=== PATIENT | male | born 1960 | race Caucasian/White ===

== ENCOUNTER → 2019-05-14 12:31 | Outpatient (BNVA) | payer MEDICARE, MEDICAID, SELFPAY | PROVIDERS: Family Provider Family Medicine; PCP Family Medicine; Visit Provider Specialist | DX: G35 Multiple sclerosis (principal) | CPT/HCPCS: 99214 ==

== ENCOUNTER → 2019-09-19 11:17 | Outpatient (BNVA) | payer MEDICARE, MEDICAID, SELFPAY | PROVIDERS: Family Provider Family Medicine; PCP Family Medicine; Visit Provider Urology | DX: N31.9 Neuromuscular dysfunction of bladder, unspecified (principal); N52.9 Male erectile dysfunction, unspecified; N39.9 Disorder of urinary system, unspecified | CPT/HCPCS: 81001 ==

== ENCOUNTER → 2019-12-11 15:36 | Outpatient (BNVA) | payer MEDICARE, MEDICAID, SELFPAY | PROVIDERS: Family Provider Family Medicine; PCP Family Medicine; Visit Provider Specialist | DX: G35 Multiple sclerosis (principal) | CPT/HCPCS: 99213 ==

== ENCOUNTER 2020-06-03 10:36 | Inpatient (IN) | payer MEDICARE, MEDICAID, SELFPAY ==
[2020-06-03] VITALS (11 sets, daily range): BP systolic 93–127; BP diastolic 54–72; PULSE 71–96; RESP 16–18; TEMP 36.6–37.2; O2SAT 93–98; BMI 29.0
--- NOTE | 2020-06-03 10:57 | XRR_ITS ---
PROCEDURE INFORMATION: Exam: XR Chest, 1 View Exam date and time: 06/03/2020 11:00 AM Age: 59 years old Clinical indication: Injury or trauma; Cough and dyspnea; Blunt trauma (contusions or hematomas); Injury details: Fall, pressure sore; Additional info: Dyspnea/cough TECHNIQUE: Imaging protocol: XR of the chest Views: 1 view. COMPARISON: CR Chest 1 [place] [id number] 11/14/2017 5:09 PM FINDINGS: Lungs: There are bibasilar pulmonary infiltrates which are consistent with bilateral pneumonia. This is more prominent on the right side. Pleural spaces: Unremarkable. No pleural effusion. No pneumothorax. Heart/Mediastinum: Unremarkable. No cardiomegaly. Bones/joints: Unremarkable. XR/XR chest 1V portable [id number] IMPRESSION: Bibasilar pneumonia greater on the right side.
--- NOTE | 2020-06-03 11:09 | W.ED.TRAUMA ---
HPI - Trauma General: Chief Complaint: Trauma Stated Complaint: FALL, PRESSURE SORE Time Seen by Provider: 06/03/20 10:45 History of Present Illness: HPI narrative: 59-year-old male with a history of MS brought in by EMS after slipping out of his chair onto the ground. His MS is quite advanced. He has a pressure sore in the lower aspect of his right buttock that is full-thickness. He denies any difficulty with breathing denies any chest pain or abdominal pain. See details in exam below MD complaint: fall (Slid from chair) Onset (ago): minute(s) Loss of Consciousness: no Location: buttocks Associated symptoms: Denies abdominal pain, anorexia, back pain, chest pain, chills, confusion, cough, dental pain, diaphoresis, difficulty breathing, dizziness, epistaxis, fever(s), headache(s), nausea, seizures, short of breath, syncope, visual disturbances, vomiting or weakness Review of Systems Const: Denies: fever(s), chills or diaphoresis ENMT: Denies: dental pain or epistaxis Card: Denies: chest pain or syncope Resp: Denies: dyspnea, productive cough or non-productive cough GI: Denies: abdominal pain, nausea or vomiting : Denies: flank pain, dysuria, urinary frequency or urinary urgency Musc: Denies: back pain Neuro: Denies: headache(s), dizziness or confusion PFSH ED PFSH: Medical History Anxiety Erectile dysfunction Multiple sclerosis Neurogenic bladder Surgical History History of eye surgery repair of muscle History of tonsillectomy Family History Other CAD (coronary artery disease) Social History Smoking and tobacco status: never smoked Alcohol intake: never Marital status: Single Current occupational status: disabled History of recent travel: No Physical Exam Const: COMMON NORMALS: no acute distress GENERAL APPEARANCE: cooperative HENMT: COMMON NORMALS: normocephalic, atraumatic and hearing grossly normal bilaterally HEAD & SCALP: normocephalic and atraumatic Eye: COMMON NORMALS: Equal, round and reactive pupils present, EOMs intact bilaterally, conjunctivae normal and no scleral icterus CONJUNCTIVA: Yes conjunctivae normal PUPIL: Yes Equal, round and reactive pupils present Neck/C-Spine: COMMON NORMALS: full ROM, no lymphadenopathy, supple and no JVD Resp: COMMON NORMALS: normal respiratory effort, No retractions, No use of accessory muscles and clear to auscultation bilaterally AUSCULTATION: clear to auscultation bilaterally Cardio: COMMON NORMALS: no JVD, regular rate, regular rhythm and No murmurs present (Cardio) RATE: regular rate RHYTHM: regular rhythm GI: COMMON NORMALS: Soft to palpation and No hepatosplenomegaly present AUSCULTATION: Yes normoactive bowel sounds PALPATION: Yes Soft to palpation, No Tenderness to palpation present (GI), No Guarding due to palpation present (GI) and Yes No hepatosplenomegaly present Back/Pelvis: OTHER: Feces along his back from proximal thigh to the shoulder blade level. There is an ulceration about 2 inches circular in the right gluteal fold. There is a large amount of dark stool caked around the rectum as well. Extremity: COMMON NORMALS: normal to inspection, capillary refill normal, no clubbing, cyanosis or edema, no calf tenderness and no pedal edema MDM - Trauma Lab Data: Labs: Lab Results 06/03/20 06/03/20 06/03/20 Range/Units 11:10 11:20 11:20 WBC (4.0-10.0) 10^3/ uL RBC (4.1-5.3) 10^6/u L Hgb (11.7-16.6) g/dL Hct (42.0-52.0) % MCV (80-94) fL MCH (28.0-34.0) pg MCHC (30.0-36.0) g/dL RDW (12.1-15.1) % Plt Count (130-400) 10^3/c mm MPV (7.4-10.4) fL Neut % (Auto) % Lymph % (Auto) % Carolina % (Auto) % Eos % (Auto) % Baso % (Auto) % Neut # (Auto) (1.8-7.7) 10^3/u L Lymph # (Auto) (0.8-4.8) 10^3/u L Carolina # (Auto) (0.2-0.9) 10^3/u L Eos # (Auto) (0.0-0.8) 10^3/u L Baso # (Auto) (0.0-0.1) 10^3/u L Nucleated RBC % (a uto) % Nucleated RBCs # /100WBC Specimen Type Arterial Sample Site Radial, right ABG pH 7.53 H (7.35-7.45) ABG pCO2 29.1 L (35-45) mmHg ABG pO2 53.7 L (80.0-100.0) mmH g ABG HCO3 24.3 (22-26) mmol/L ABG O2 Saturation 91.2 ABG Base Excess 1.9 (-2.0-2.0) mmol/ L Ramsey Test Pos A-a O2 Gradient 7.9 (5-10) mmHg Hematocrit 28.6 L (42-52) % Hgb O2 Saturation 89.4 L (95-100) % Carboxyhemoglobin 1.4 (0.4-20.1) %THgb Methemoglobin 0.6 (0.4-1.5) % Total Hemoglobin 9.3 L (14-18) g/dL Sodium 137.0 (131-143) mmol/L Potassium 3.1 L (3.5-5.0) mmol/L Glucose 114.0 (70-115) mg/dL Ionized Calcium 1.1 (1.1-1.4) mmol/L O2 Delivery Device Room air Legislative Director ID Gd Chloride (98-107) mmol/L Carbon Dioxide (22-29) mmol/L Anion Gap (5-19) BUN (8-23) mg/dL Creatinine (0.7-1.2) mg/dL GFR Calculation (90-130) mL/min Calculated Osmolal ity (285-295) mOsm/k g Lactic Acid 1.5 (0.5-2.2) mmol/L Calcium (8.5-10.5) mg/dL Magnesium (1.7-2.3) mg/dL Total Bilirubin (0.15-1.2) mg/dL AST (0-40) U/L ALT (0-41) U/L Alkaline Phosphata se (40-130) IU/L Creatine Kinase (39-308) U/L Total Protein (6.6-8.7) g/dL Albumin (3.5-5.2) g/dL Globulin (1.3-4.6) g/dL Lipase (13-60) U/L Urine Color Dark yellow (Yellow) Urine Appearance Hazy A (CLEAR) Urine pH 5 (5-7) Ur Specific Gravit y 1.025 (1.005-1.030) Urine Protein Trace (Negative) Urine Glucose (UA) Norm (Normal) Urine Ketones 1+ H (Negative) Urine Blood Trace H (Negative) Urine Nitrate Positive H (Negative) Urine Bilirubin 1+ H (Negative) Urine Urobilinogen 4 H (Negative) mg/dL Ur Leukocyte Bailey ase 2+ H (Negative) Urine RBC 5-10 H (0-2) /hpf Urine WBC 15-25 H (0-5) /hpf Ur Squamous Epith Cells 0-4 H (0-5) /hpf Amorphous Sediment Not Reportable Urine Bacteria 3+ H (NONE) /hpf Urine Mucus 1+ /hpf 06/03/20 06/03/20 06/03/20 Range/Units 11:37 11:37 11:37 WBC 5.8 (4.0-10.0) 10^3/ uL RBC 3.42 L (4.1-5.3) 10^6/u L Hgb 9.2 L (11.7-16.6) g/dL Hct 29.0 L (42.0-52.0) % MCV 84.8 (80-94) fL MCH 26.9 L (28.0-34.0) pg MCHC 31.7 (30.0-36.0) g/dL RDW 14.3 (12.1-15.1) % Plt Count 315 (130-400) 10^3/c mm MPV 8.9 (7.4-10.4) fL Neut % (Auto) 76.5 % Lymph % (Auto) 14.8 % Carolina % (Auto) 5.9 % Eos % (Auto) 0.7 % Baso % (Auto) 0.7 % Neut # (Auto) 4.44 (1.8-7.7) 10^3/u L Lymph # (Auto) 0.9 (0.8-4.8) 10^3/u L Carolina # (Auto) 0.3 (0.2-0.9) 10^3/u L Eos # (Auto) 0.0 (0.0-0.8) 10^3/u L Baso # (Auto) 0.0 (0.0-0.1) 10^3/u L Nucleated RBC % (a uto) 0 % Nucleated RBCs # 0.0 /100WBC Specimen Type Sample Site ABG pH (7.35-7.45) ABG pCO2 (35-45) mmHg ABG pO2 (80.0-100.0) mmH g ABG HCO3 (22-26) mmol/L ABG O2 Saturation ABG Base Excess (-2.0-2.0) mmol/ L Ramsey Test A-a O2 Gradient (5-10) mmHg Hematocrit (42-52) % Hgb O2 Saturation (95-100) % Carboxyhemoglobin (0.4-20.1) %THgb Methemoglobin (0.4-1.5) % Total Hemoglobin (14-18) g/dL Sodium 137 (131-143) mmol/L Potassium 3.2 L (3.5-5.0) mmol/L Glucose 107 (70-115) mg/dL Ionized Calcium (1.1-1.4) mmol/L O2 Delivery Device Legislative Director ID Chloride 103 (98-107) mmol/L Carbon Dioxide 23 (22-29) mmol/L Anion Gap 14.2 (5-19) BUN 15 (8-23) mg/dL Creatinine 0.7 (0.7-1.2) mg/dL GFR Calculation 115.0 (90-130) mL/min Calculated Osmolal ity 285 (285-295) mOsm/k g Lactic Acid (0.5-2.2) mmol/L Calcium 8.3 L (8.5-10.5) mg/dL Magnesium 2.0 (1.7-2.3) mg/dL Total Bilirubin 0.9 (0.15-1.2) mg/dL AST 25 (0-40) U/L ALT 17 (0-41) U/L Alkaline Phosphata se 60 (40-130) IU/L Creatine Kinase 385 H* (39-308) U/L Total Protein 5.6 L (6.6-8.7) g/dL Albumin 2.8 L (3.5-5.2) g/dL Globulin 2.8 (1.3-4.6) g/dL Lipase 12 L (13-60) U/L Urine Color (Yellow) Urine Appearance (CLEAR) Urine pH (5-7) Ur Specific Gravit y (1.005-1.030) Urine Protein (Negative) Urine Glucose (UA) (Normal) Urine Ketones (Negative) Urine Blood (Negative) Urine Nitrate (Negative) Urine Bilirubin (Negative) Urine Urobilinogen (Negative) mg/dL Ur Leukocyte Bailey ase (Negative) Urine RBC (0-2) /hpf Urine WBC (0-5) /hpf Ur Squamous Epith Cells (0-5) /hpf Amorphous Sediment Urine Bacteria (NONE) /hpf Urine Mucus /hpf Discharge Plan Discharge Patient Disposition: Admitted As Inpatient Admit Provider: Elia Bingham Clinical Impression: Multiple sclerosis, Urinary tract infection, Pressure ulcer, Pneumonia, Acute anemia, Upper GI bleed, Neurogenic bladder, Hypokalemia Condition: Stable Coding Level of Care Code ED Fermenter Helper for [facility] Fwd Exam Comprehensive
[2020-06-03 11:28] LABS: Add Urine Microscopic? YES; Bilirubin Urine 1+ (Negative); Blood Urine Trace (Negative); Glucose Urine UA Norm (Normal); Ketones Urine 1+ (Negative); Leukocyte Esterase Urine 2+ (Negative); Nitrate Urine Positive (Negative); Protein Urine Trace (Negative); Specific Gravity, Urine 1.025 (1.005-1.030); Urine Appearance Hazy (CLEAR); Urine Color Dark Yellow (Yellow); Urobilinogen Urine 4 mg/dL (Negative); pH Urine 5 (5-7)
[2020-06-03 11:31] LABS: Bacteria Urine 3+ /hpf; Mucus Urine 1+ /hpf; Squamous Epithelial Cell Urine 0-4 /hpf (0-5); WBC Urine 15-25 /hpf (0-5)
[2020-06-03 11:32] LABS: Add Urine Culture? Yes
[2020-06-03 11:38] LABS: ABG PCO2 29.1 mmHg (35-45); ABG PH Result 7.53 (7.35-7.45); Alveolar-Arterial Oxygen Gradi 7.9 mmHg (5-10); Arterial Blood Gas Hematocrit 28.6 % (42-52); Base Excess ABG 1.9 mmol/L (-2.0-2.0); Blood Gas Allen Test Pos; Blood Gas Operator Identificat GD; Blood Gas Sample Site Radial, right; Blood Gas Sample Type Arterial; Carboxyhemoglobin 1.4 %THgb (0.4-20.1); HCO3 ABG 24.3 mmol/L (22-26); HGB O2 Sat 89.4 % (95-100); Ionized Calcium Level - ABG 1.1 mmol/L (1.1-1.4); Methemoglobin 0.6 % (0.4-1.5); Oxygen Device ROOM AIR; Oxygen Saturation ABG 91.2; PO2 ABG 53.7 mmHg (80.0-100.0); Potassium Level - ABG 3.1 mmol/L (3.5-5.0); Total Hemoglobin 9.3 g/dL (14-18)
[2020-06-03 11:49] LABS: Lactic Sepsis W/Reflex 1.5 mmol/L (0.5-2.2)
[2020-06-03 11:50] LABS: Basophils % 0.7 %; Eosinophils % 0.7 %; Hemoglobin 9.2 g/dL (11.7-16.6); Lymphocytes # 0.9 10^3/uL (0.8-4.8); Lymphocytes % 14.8 %; Mean Corpuscular HGB Conc 31.7 g/dL (30.0-36.0); Mean Corpuscular Hemoglobin 26.9 pg (28.0-34.0); Mean Corpuscular Volume 84.8 fL (80-94); Mean Platelet Volume 8.9 fL (7.4-10.4); Monocytes # 0.3 10^3/uL (0.2-0.9); Monocytes % 5.9 %; Neutrophils # 4.44 10^3/uL (1.8-7.7); Neutrophils % 76.5 %; Nucleated Red Blood Cells % 0 %; Platelet Count 315 10^3/cmm (130-400); Red Blood Count 3.42 10^6/uL (4.1-5.3); Red Cell Distribution Width 14.3 % (12.1-15.1); White Blood Count 5.8 10^3/uL (4.0-10.0)
[2020-06-03 12:09] LABS: Alanine Aminotransferase 17 U/L (0-41); Albumin Level 2.8 g/dL (3.5-5.2); Alkaline Phosphatase 60 IU/L (40-130); Anion Gap 14.2 (5-19); Aspartate Amino Transferase 25 U/L (0-40); Blood Urea Nitrogen 15 mg/dL (8-23); Calcium 8.3 mg/dL (8.5-10.5); Carbon Dioxide 23 mmol/L (22-29); Chloride 103 mmol/L (98-107); Creatinine Clr Calc Pharmacy 112.6013; Globulin 2.8 g/dL (1.3-4.6); Glucose 107 mg/dL (65-115); Lipase 12 U/L (13-60); Osmolality Calculated 285 mOsm/kg (285-295); Potassium 3.2 mmol/L (3.5-5.1); Sodium 137 mmol/L (136-145); Total Bilirubin 0.9 mg/dL (0.15-1.2); Total Protein 5.6 g/dL (6.6-8.7)
[2020-06-03] MEDS: levofloxacin-dextrose 5 % 750 MG/150 ML PREMIX 100 MG IV (12:26)
[2020-06-03] MEDS: piperacillin-tazobactam 3.375 GM in sodium chloride 0.9% (plus) 50 ML IV ×2 (12:27→21:20)
--- NOTE | 2020-06-03 13:28 | PC.NURSE ---
Cleaned pt from soiled kulwinder area. Noted dried stool, and medium size circular pressure ulcer. Has a dried black scab covering the top. Also noted several circular psoriasis areas , red and dried scabbed.
--- NOTE | 2020-06-03 14:28 | PM.HP ---
Providers/Chief Complaint Admitting Physician: Elia Bingham MD Primary Care Provider: Jay Espinoza DO Chief Complaint: FALL, PRESSURE SORE History of Present Illness Duarte Velazquez Jr is a 59 year old male presents to emergency department after he sleeps from his chair onto the ground. He was found to be covered in urine and feces. Patient reports that since yesterday he noticed melanotic stool. He has been falling a lot lately. He has multiple abrasions throughout his body and he has large what appears to be stage III pressure ulcer on his right buttock. He has advanced MS and lives alone. Apparently he has some help and specifics unknown. He denies previous history of heart disease. Reports that he has not been able to walk at least 1 to 2 years. Last time he recalls he was able to walk without any supportive device was 2011. [facility] department patient was found to be very dry. He had Miguel catheter placed with very minimal dark concentrated and cloudy urine in return. He was found to have urinary tract infection. Patient reports that he was unable to eat or drink much in the last several days. Review of Systems Const: Denies: fever(s) or chills Eyes: Denies: change in vision ENMT: Reports: throat pain; Denies: change in hearing Card: Denies: chest pain, edema or lightheadedness Resp: Denies: dyspnea or productive cough GI: Reports: melena; Denies: abdominal pain, nausea, vomiting, dysphagia, diarrhea, constipation or hematochezia : Reports: difficulty urinating (Reports difficulty initiating urination. Feels he has full bladder.) Musc: Denies: joint pain or joint swelling Skin/Breast: Denies: rash or erythema Neuro: Reports: weakness in extremities; Denies: headache(s) Psych: Denies: depression or suicidal ideation Endo: Denies: excessive sweating Donny/Lymph: Denies: easy bleeding or tender lymph nodes All/Imm: Denies: throat swelling Medications/Allergies Home Medications Medication Instructions Recorded Confirmed Last Taken Type ibuprofen 200 mg capsule 200 mg PO Q6H PRN 05/14/19 06/03/20 Unknown History sildenafil 100 mg tablet 100 mg PO DAILY PRN #20 tab 09/19/19 06/03/20 Unknown Rx glatiramer 40 mg/mL subcutaneous 40 mg SUBCUT .COMPLEX #12 ml 12/17/19 06/03/20 06/02/20 Rx syringe fluticasone propionate 50 See Rx Instructions .ROUTE 03/12/20 06/03/20 Unknown Rx mcg/actuation nasal .COMPLEX #15.8 ml spray,suspension diazepam 10 mg tablet 10 mg PO DAILY PRN tab 06/02/20 06/03/20 Unknown History baclofen 20 mg PO TID 06/03/20 06/03/20 06/02/20 History citalopram 20 mg PO DAILY 06/03/20 06/03/20 06/02/20 History omeprazole 20 mg PO DAILY 06/03/20 06/03/20 06/02/20 History oxybutynin chloride 5 mg PO DAILY 06/03/20 06/03/20 06/02/20 History tamsulosin 0.4 mg PO DAILY 06/03/20 06/03/20 06/02/20 History Allergies Allergy/AdvReac Type Severity Reaction Status Date / Time glatiramer (copolymer 1) Allergy Intermediate rash Verified 06/03/20 10:41 PFSH Acute PFSH: Medical History (Updated 06/03/20 @ 14:37 by Elia Bingham MD) Anxiety Erectile dysfunction Multiple sclerosis Neurogenic bladder Surgical History History of eye surgery repair of muscle History of tonsillectomy Family History Other CAD (coronary artery disease) Social History Smoking and tobacco status: never smoked Alcohol intake: never Marital status: Single Current occupational status: disabled History of recent travel: No Vitals/I&O/Wt Last Vital Signs Temp 98.9 F 06/03/20 13:44 Pulse 85 06/03/20 13:44 Resp 18 06/03/20 13:44 BP 127/59 06/03/20 13:44 Pulse Ox 98 06/03/20 13:44 06/02/20 06/03/20 06/03/20 22:59 06:59 14:59 Intake Total 50 / 50 Balance 50 / 50 Weight last 48 hrs Weight 81.647 kg Physical Exam Const: COMMON NORMALS: no acute distress and patient oriented x3 OTHER: Lethargic with slow speech but otherwise answers questions appropriately. HENMT: COMMON NORMALS: normocephalic and atraumatic HEAD & SCALP: normocephalic and atraumatic Eye: COMMON NORMALS: EOMs intact bilaterally, conjunctivae normal and no scleral icterus CONJUNCTIVA: Yes conjunctivae normal Neck/C-Spine: COMMON NORMALS: no lymphadenopathy and no meningeal signs Lymph: LYMPHATIC: no lymphadenopathy noted Chest: COMMONS NORMALS: normal palpation of entire chest wall Resp: COMMON NORMALS: No use of accessory muscles and clear to auscultation bilaterally AUSCULTATION: clear to auscultation bilaterally Cardio: COMMON NORMALS: regular rate, regular rhythm and No murmurs present (Cardio) RATE: regular rate RHYTHM: regular rhythm OTHER: No lower extremity edema GI: COMMON NORMALS: Soft to palpation and non-tender PALPATION: Yes Soft to palpation RECTAL EXAM: Yes deferred : COMMON NORMALS: Yes no CVA tenderness BLADDER/KIDNEY EXAM: Yes no CVA tenderness Back/Pelvis: COMMON NORMALS: no CVA tenderness and thoracic and lumbar spine normal to inspection Extremity: COMMON NORMALS: normal to inspection and capillary refill normal Neuro: COMMON NORMALS: patient oriented x3 SENSORIUM/ORIENTATION: Yes alert MENINGEAL SIGNS: Yes no meningeal signs Psych: COMMON NORMALS: mental status grossly normal, Normal thought process present and cooperative THOUGHT PROCESS: Normal thought process present Skin: NARRATIVE SKIN EXAM: Multiple skin abrasions throughout. Large right buttock at least 3 cm stage III to possibly 4 pressure ulcer without signs of infection. Urinary Catheter Management^: Miguel: Cath Placed During This Visit: yes Urinary Catheter Date of Insertion: 06/03/20 Urinary Catheter Time of Insertion: 11:14 Data : 06/03/20 11:37 06/03/20 11:37 Micro: Microbiology 06/03/20 11:37 Blood Culture - Preliminary Blood SPECIMEN COLLECTED 06/03/20 11:37 Blood Culture - Preliminary Blood SPECIMEN COLLECTED A&P Assessment and plan (1) Multiple sclerosis: Status: Acute (2) Neurogenic bladder: Status: Acute (3) Urinary tract infection: Status: Acute (4) Pressure ulcer: Status: Acute (5) Pneumonia: Status: Acute (6) Acute anemia: Status: Acute (7) Upper GI bleed: Status: Acute (8) NSAID induced gastritis: Status: Acute (9) Dehydration: Status: Acute (10) Hypokalemia: Status: Acute Additional A&P Information PLAN: Replete potassium and start patient on LR IV hydration. We will continue current antibiotics and request speech therapy evaluation, physical and Occupational Therapy. Aspiration pneumonia cannot be ruled out. Current antibiotics should cover UTI as well. Awaiting culture results. Consider discontinuing oxybutynin. Will discuss with Dr. Mtz We will discontinue NSAIDs and start patient on high-dose Protonix for highly suspected NSAID induced gastritis and related GI bleed monitor hemoglobin and platelets. Initial anemia work-up. CK to rule out rhabdomyolysis. Will use Santyl for wound care for now. Patient will benefit from outpatient wound care follow-up. Patient will definitely need to have placement to prison facility for rehabilitation and if improves could possibly qualify for assisted living. Attestations Medical Necessity Statement*: Patient with pneumonia, UTI and GI bleed requires close inpatient monitoring, treatment evaluation. I expect patient will require more than 2 midnights. Coding Level of Care Code Acute Composition Floor Layer for [facility] Fwd Diagnoses Multiple sclerosis G35 Neurogenic bladder N31.9 Urinary tract infection N39.0 Pressure ulcer L89.90 Pneumonia J18.9 Acute anemia D64.9 Upper GI bleed K92.2 NSAID induced gastritis K29.60; T39.395A Dehydration E86.0 Hypokalemia E87.6
[2020-06-03 15:23] LABS: Creatine Phosphokinase 385 U/L (39-308)
[2020-06-03] MEDS: lidocaine 1% 5 ML in potassium chloride premix 100 ML 25 ML IV (15:46)
[2020-06-03] MEDS: lactated ringers 1,000 ML 125 ML IV (15:46)
[2020-06-03] MEDS: pantoprazole DR 40 mg Tablet PO (18:11)
[2020-06-04] VITALS (9 sets, daily range): BP systolic 97–125; BP diastolic 50–75; PULSE 70–87; RESP 17–18; TEMP 36.7–38.3; O2SAT 96–99
[2020-06-04] MEDS: acetaminophen 325 mg Tablet 650 MG PO (00:31)
[2020-06-04] MEDS: lactated ringers 1,000 ML 125 ML IV (03:48)
[2020-06-04] MEDS: piperacillin-tazobactam 3.375 GM in sodium chloride 0.9% (plus) 50 ML IV ×3 (05:21→21:13)
[2020-06-04 05:39] LABS: Basophils % 0.8 %; Eosinophils # 0.1 10^3/uL (0.0-0.8); Eosinophils % 1.9 %; Hematocrit 26.1 % (42.0-52.0); Lymphocytes # 1.1 10^3/uL (0.8-4.8); Lymphocytes % 20.5 %; Mean Corpuscular HGB Conc 30.7 g/dL (30.0-36.0); Mean Corpuscular Hemoglobin 26.5 pg (28.0-34.0); Mean Corpuscular Volume 86.4 fL (80-94); Mean Platelet Volume 9.1 fL (7.4-10.4); Monocytes # 0.3 10^3/uL (0.2-0.9); Neutrophils # 3.72 10^3/uL (1.8-7.7); Neutrophils % 69.9 %; Nucleated Red Blood Cells % 0 %; Platelet Count 274 10^3/cmm (130-400); Red Blood Count 3.02 10^6/uL (4.1-5.3); Red Cell Distribution Width 14.5 % (12.1-15.1); White Blood Count 5.3 10^3/uL (4.0-10.0)
[2020-06-04 05:51] LABS: INR 1.39 (0.8-1.2)
[2020-06-04 05:52] LABS: Partial Thromboplastin Time 40.1 SECONDS (23.9-36.7)
[2020-06-04 06:07] LABS: Alanine Aminotransferase 14 U/L (0-41); Albumin Level 2.3 g/dL (3.5-5.2); Alkaline Phosphatase 52 IU/L (40-130); Anion Gap 10.5 (5-19); Aspartate Amino Transferase 24 U/L (0-40); Blood Urea Nitrogen 15 mg/dL (8-23); Calcium 7.9 mg/dL (8.5-10.5); Carbon Dioxide 24 mmol/L (22-29); Chloride 106 mmol/L (98-107); Creatinine Clr Calc Pharmacy 87.5788; Globulin 2.6 g/dL (1.3-4.6); Glomerular Filtration Rate 86.1 mL/min (90-130); Glucose 76 mg/dL (65-115); Osmolality Calculated 284 mOsm/kg (285-295); Potassium 3.5 mmol/L (3.5-5.1); Sodium 137 mmol/L (136-145); Total Bilirubin 0.7 mg/dL (0.15-1.2); Total Protein 4.9 g/dL (6.6-8.7)
[2020-06-04 06:16] LABS: Thyroid Stimulating Hormone 1.56 uIU/mL (0.27-4.20)
[2020-06-04 06:24] LABS: Folate Level 3.6 ng/mL (4.5-32.2); Procalcitonin 0.16 ng/mL (0-0.5); Vitamin B12 462 pg/mL (232-1245)
[2020-06-04 06:35] LABS: Ferritin 169 ng/mL (30-400); Iron 15 ug/dL (59-158); Percent Saturation 8.7 % (20-50); Total Iron Binding Capacity 171 mcg/dl; Unsaturated Iron Binding 156 ug/dL (112-347)
[2020-06-04] MEDS: pantoprazole DR 40 mg Tablet PO ×2 (09:09→17:26)
[2020-06-04] MEDS: folic acid 1 mg Tablet PO ×2 (09:09→17:27)
--- NOTE | 2020-06-04 10:11 | P.PN_ITS ---
Subjective Subjective: Interval history: Patient reports feeling very weak this morning. Denies shortness of breath or chest pain. Had approximate home 450 mL of urine output since yesterday. Hemoglobin is down to 8.0. Noted to have some hard indurations above his knees bilaterally with left more than right and patient reports that this was there for a long time due to tissue necrosis. This appears to be calcified based on exam. He is folate came back very low and replacement initiated. He had evidence of mild rhabdomyolysis. Vitals/I&O/Wt Last Vital Signs Temp 98.9 F 06/04/20 08:00 Pulse 79 06/04/20 08:00 Resp 18 06/04/20 08:00 BP 97/57 06/04/20 08:00 Pulse Ox 97 06/04/20 03:56 06/03/20 06/04/20 06/04/20 22:59 06:59 14:59 Intake Total 105 / 155 1243.75 / 1398.75 Output Total 450 / 450 Balance 105 / 155 793.75 / 948.75 Weight last 48 hrs Weight 81.647 kg Physical Exam Urinary Catheter Management^: Miguel: Cath Placed During This Visit: yes Reason for Continuing Indwelling Catheter: Assist Healing of Perineal & Sacral Wounds- Incontinent Patients Urinary Catheter Date of Insertion: 06/03/20 Urinary Catheter Time of Insertion: 11:14 Data : 06/04/20 04:40 06/04/20 04:40 Micro: Microbiology 06/03/20 11:37 Blood Culture - Preliminary Blood SPECIMEN COLLECTED 06/03/20 11:37 Blood Culture - Preliminary Blood SPECIMEN COLLECTED A&P Assessment and plan (1) Multiple sclerosis: Status: Acute (2) Neurogenic bladder: Status: Acute (3) Urinary tract infection: Status: Acute (4) Pressure ulcer: Status: Acute (5) Pneumonia: Status: Acute (6) Acute anemia: Status: Acute (7) Upper GI bleed: Status: Acute (8) NSAID induced gastritis: Status: Acute (9) Dehydration: Status: Acute (10) Hypokalemia: Status: Acute (11) Rhabdomyolysis: Acute, appears traumatic secondary to falls. Present on admission. Status: Acute Additional A&P Information PLAN: Continue high-dose PPI. Monitor hemoglobin. We will give patient 5 mg vitamin K subcu and Venofer daily for 3 days. Continue IV fluids and antibiotic. Physical, occupational and speech therapy. Patient will definitely require placement to nursing facility for rehabilitation when deemed safe to be dismissed. Attestations Medical Necessity Statement*: Patient with MS and severe generalized weakness as well as anemia and UTI requires close inpatient monitoring and treatment until deemed safe for discharge. Coding Level of Care Code Acute Intermediate Card Tender for [facility] Fwd Diagnoses Multiple sclerosis G35 Neurogenic bladder N31.9 Urinary tract infection N39.0 Pressure ulcer L89.90 Pneumonia J18.9 Acute anemia D64.9 Upper GI bleed K92.2 NSAID induced gastritis K29.60; T39.395A Dehydration E86.0 Hypokalemia E87.6 Rhabdomyolysis M62.82
[2020-06-04] MEDS: iron sucrose 200 MG in sodium chloride 0.9% (100 ml) 100 ML 220 MG IV (11:29)
[2020-06-04] MEDS: phytonadione (ADULT) 10 mg/mL Ampule 1 mL 5 MG SUBCUT (11:33)
[2020-06-04] MEDS: collagenase oint 30 gm 1 APPLIC TOPICAL (11:37)
[2020-06-04] MEDS: lidocaine 1% 5 ML in potassium chloride premix 100 ML 25 ML IV (11:37)
[2020-06-04] MEDS: levofloxacin-dextrose 5 % 750 MG/150 ML PREMIX 100 MG IV (12:14)
--- NOTE | 2020-06-04 12:36 | PC.SLP ---
Patient remains unable to participate in speech therapy intervention due to decreased levels of alertness.
[2020-06-05] VITALS (9 sets, daily range): BP systolic 116–135; BP diastolic 65–81; PULSE 71–87; RESP 17–20; TEMP 36.3–37.9; O2SAT 93–98
[2020-06-05] MEDS: piperacillin-tazobactam 3.375 GM in sodium chloride 0.9% (plus) 50 ML IV ×2 (04:14→17:13)
[2020-06-05] MEDS: lactated ringers 1,000 ML 125 ML IV (04:15)
[2020-06-05 05:41] LABS: Basophils % 0.5 %; Eosinophils # 0.1 10^3/uL (0.0-0.8); Eosinophils % 1.3 %; Hematocrit 26.1 % (42.0-52.0); Hemoglobin 8.1 g/dL (11.7-16.6); Lymphocytes # 1.1 10^3/uL (0.8-4.8); Lymphocytes % 18.1 %; Mean Corpuscular Hemoglobin 26.3 pg (28.0-34.0); Mean Corpuscular Volume 84.7 fL (80-94); Monocytes # 0.4 10^3/uL (0.2-0.9); Monocytes % 6.5 %; Neutrophils # 4.41 10^3/uL (1.8-7.7); Neutrophils % 72.1 %; Nucleated Red Blood Cells % 0 %; Platelet Count 272 10^3/cmm (130-400); Red Blood Count 3.08 10^6/uL (4.1-5.3); Red Cell Distribution Width 14.6 % (12.1-15.1); White Blood Count 6.1 10^3/uL (4.0-10.0)
[2020-06-05 06:04] LABS: Alanine Aminotransferase 17 U/L (0-41); Albumin Level 2.4 g/dL (3.5-5.2); Alkaline Phosphatase 54 IU/L (40-130); Anion Gap 16.3 (5-19); Aspartate Amino Transferase 35 U/L (0-40); Blood Urea Nitrogen 12 mg/dL (8-23); Calcium 7.4 mg/dL (8.5-10.5); Carbon Dioxide 20 mmol/L (22-29); Chloride 103 mmol/L (98-107); Glomerular Filtration Rate 98.6 mL/min (90-130); Glucose 43 mg/dL (65-115); Magnesium 2.1 mg/dL (1.7-2.3); Osmolality Calculated 277 mOsm/kg (285-295); Potassium 4.3 mmol/L (3.5-5.1); Sodium 135 mmol/L (136-145); Total Bilirubin 0.9 mg/dL (0.15-1.2); Total Protein 4.4 g/dL (6.6-8.7)
[2020-06-05 06:22] LABS: Creatine Phosphokinase 719 U/L (39-308)
--- NOTE | 2020-06-05 09:35 | PM.PN ---
Subjective Subjective: Interval history: Patient reports doing better this morning. He denies shortness of breath or chest pain. He is generally weak. He is alert and oriented to self year but thought that he is at the rehabilitation facility. He knew that Jhon is the president of [employer]. He denies any neck pain or headache. CK increased. Hemoglobin platelets and albumin stable. Vitals/I&O/Wt Last Vital Signs Temp 97.4 F L 06/05/20 08:00 Pulse 80 06/05/20 08:00 Resp 18 06/05/20 08:00 BP 116/65 06/05/20 08:00 Pulse Ox 97 06/05/20 08:00 06/04/20 06/05/20 06/05/20 22:59 06:59 14:59 Intake Total 609.167 / 919.167 352.083 / 1271.250 Output Total 400 / 400 450 / 850 Balance 209.167 / 519.167 -97.917 / 421.250 Weight last 48 hrs Weight 81.647 kg Physical Exam Narrative: EXAM NARRATIVE: Overall decreased air movement but otherwise clear lungs. Heart is regular. No lower extremity edema. Multiple skin abrasions but do not appear infected. Urinary Catheter Management^: Miguel: Cath Placed During This Visit: yes Reason for Continuing Indwelling Catheter: Assist Healing of Perineal & Sacral Wounds- Incontinent Patients Urinary Catheter Date of Insertion: 06/03/20 Urinary Catheter Time of Insertion: 11:14 Data : 06/05/20 05:20 06/05/20 05:20 Micro: Microbiology 06/03/20 11:10 Urine Culture - Preliminary Urine,Clean Catch Coagulase negativ staphylococc 06/03/20 11:37 Blood Culture - Preliminary Blood NEGATIVE TO DATE 06/03/20 11:37 Blood Culture - Preliminary Blood NEGATIVE TO DATE A&P Assessment and plan (1) Multiple sclerosis: Status: Acute (2) Neurogenic bladder: Status: Acute (3) Urinary tract infection: Status: Acute (4) Pressure ulcer: Status: Acute (5) Pneumonia: Status: Acute (6) Acute anemia: Status: Acute (7) Upper GI bleed: Status: Acute (8) NSAID induced gastritis: Status: Acute (9) Dehydration: Status: Acute (10) Hypokalemia: Status: Acute (11) Rhabdomyolysis: Acute, appears traumatic secondary to falls. Present on admission. Status: Acute Additional A&P Information PLAN: Continue high-dose PPI. Increase fluids to 175 and monitor urinary output. Repeat labs in a.m. Continue current antibiotic as patient appears to be responding well. Continue with physical and Occupational Therapy. Patient denies any difficulty swallowing. Patient will need to be placed to nursing facility when deemed safe to be discharged. Attestations Medical Necessity Statement*: Patient with MS as well as pneumonia and acute rhabdomyolysis requires close inpatient monitoring and treatment. Time Spent in Patient Care: 16 - 35 minutes Coding Level of Care Code Acute Director Of Catering for [facility] Fwd Diagnoses Multiple sclerosis G35 Neurogenic bladder N31.9 Urinary tract infection N39.0 Pressure ulcer L89.90 Pneumonia J18.9 Acute anemia D64.9 Upper GI bleed K92.2 NSAID induced gastritis K29.60; T39.395A Dehydration E86.0 Hypokalemia E87.6 Rhabdomyolysis M62.82
[2020-06-05] MEDS: folic acid 1 mg Tablet PO ×2 (11:47→17:16)
[2020-06-05] MEDS: pantoprazole DR 40 mg Tablet PO ×2 (11:47→17:16)
[2020-06-05] MEDS: iron sucrose 200 MG in sodium chloride 0.9% (100 ml) 100 ML 220 MG IV (13:51)
[2020-06-05] MEDS: levofloxacin-dextrose 5 % 750 MG/150 ML PREMIX 100 MG IV (14:24)
--- NOTE | 2020-06-05 19:27 | PC.NURSE ---
SHIFT SUMMARY PT HAS DONE WELL FOR ME THIS SHIFT, I HAVE NOTICED GREAT IMPROVEMENT. AT THE START OF SHIFT PT APPEARED TO BE VERY LETHARGIC AND REPORTED OF BEING TIRED. PT VITAL SIGNS WERE ALL WITHIN NORMAL LIMITS. PHYSICAL THERAPY CAME IN TO WORK WITH THIS PT THIS MORNING AND ENDED UP GETTING THE PT UP TO A CHAIR USING [id number]. AT ONE POINT THIS MORNING ANOTHER NURSE AND AID HAD WALKED BY THE PT'S ROOM AND HAD NOTICED HIM LYING IN THE FLOOR. PER THE AID THEY QUICKLY GOT THE CHARGE NURSE AND SOME OTHER NURSE TO ASSIST IN HELPING THIS PT GET UP AND BACK TO BED. THIS NURSE HAD JUST STARTED BLOOD ON ANOTHER PT AND WAS NOT ABLE TO LEAVE THAT PT PER PROTOCOL. THE AID CAME AND NOTIFIED ME WHAT WAS GOING ON. AFTER STARTING THE BLOOD AND STAYING WITH THE OTHER PT PER PROTOCOL THIS NURSE WENT TO ASSESS THIS PT AFTER THE MONITORING PERIOD WAS UP. THERE WERE FOUR OTHER NURSES IN THIS PTS ROOM ALONG WITH AN AID WHO HAD ALL HELPED GET HIM BACK TO BED AND EVERYTHING CLEANED UP. THE PT HAD STATED HE THOUGHT IT WOULD BE EASIER FOR HIM TO TAKE CARE OF THINGS INSTEAD OF ASKING FOR HELP THAT IS WHEN HE THEN FEEL. THE PT HAD NO COMPLAINTS OF PAIN. THE PT WAS ASSESSED BY MULTIPLE NURSES INCLUDING MYSELF AND NO NEW INJURIES WERE NOTED FOR HIM. THE PT HAD ZERO COMPLAINTS OF PAIN RATING IT A ZERO ALL DAY LONG. THE PT HAS BEEN DOING WELL, HIS DIET WAS ADVANCED AND HE HAS BEEN EATING WELL. HE HAS BEEN INTERACTIVE AND COMMUNICATING WITH STAFF ALL DAY LONG, HE WAS NOT DOING THIS THE PREVIOUS EVENING ACCORDING TO DIE SIZER REPORT AND MY ASSESSMENT THIS MORNING. ONE OF THE NURSES WHO HELPED ASSIST THIS PT AND WAS THERE FOR THE WHOLE INCIDENT WROTE A REPORT AND THEN NOTIFIED THE FAMILY WELL THE DOCTOR. THE FAMILY WAS THANKFUL WE CALLED AND DID NOT APPEAR TO BE UPSET. THE PT IS DOING WELL, STILL NO COMPLAINTS OF PAIN AND SAYS HE WILL CALL FOR HELP FROM NOW ON. WILL CONTINUE TO MONITOR.
[2020-06-05] MEDS: lactated ringers 1,000 ML 175 ML IV (21:12)
[2020-06-06] VITALS (8 sets, daily range): BP systolic 113–159; BP diastolic 61–76; PULSE 79–90; RESP 18–22; TEMP 36.8–37.7; O2SAT 92–98
[2020-06-06] MEDS: piperacillin-tazobactam 3.375 GM in sodium chloride 0.9% (plus) 50 ML IV ×3 (00:53→20:13)
[2020-06-06] MEDS: lactated ringers 1,000 ML 175 ML IV ×3 (04:32→18:20)
[2020-06-06 06:07] LABS: Basophils % 0.7 %; Eosinophils # 0.1 10^3/uL (0.0-0.8); Eosinophils % 2.3 %; Hematocrit 27.3 % (42.0-52.0); Hemoglobin 8.8 g/dL (11.7-16.6); Lymphocytes # 0.9 10^3/uL (0.8-4.8); Mean Corpuscular HGB Conc 32.2 g/dL (30.0-36.0); Mean Corpuscular Hemoglobin 26.4 pg (28.0-34.0); Mean Platelet Volume 9.7 fL (7.4-10.4); Monocytes # 0.4 10^3/uL (0.2-0.9); Monocytes % 6.5 %; Neutrophils # 4.57 10^3/uL (1.8-7.7); Neutrophils % 74.5 %; Nucleated Red Blood Cells % 0 %; Platelet Count 249 10^3/cmm (130-400); Red Blood Count 3.33 10^6/uL (4.1-5.3); Red Cell Distribution Width 14.5 % (12.1-15.1); White Blood Count 6.1 10^3/uL (4.0-10.0)
[2020-06-06 06:20] LABS: Alanine Aminotransferase 17 U/L (0-41); Albumin Level 2.5 g/dL (3.5-5.2); Alkaline Phosphatase 70 IU/L (40-130); Anion Gap 14.9 (5-19); Aspartate Amino Transferase 34 U/L (0-40); Blood Urea Nitrogen 9 mg/dL (8-23); Calcium 8.1 mg/dL (8.5-10.5); Carbon Dioxide 20 mmol/L (22-29); Chloride 102 mmol/L (98-107); Globulin 3.2 g/dL (1.3-4.6); Glomerular Filtration Rate 98.6 mL/min (90-130); Glucose 99 mg/dL (65-115); Magnesium 1.8 mg/dL (1.7-2.3); Osmolality Calculated 275 mOsm/kg (285-295); Potassium 3.9 mmol/L (3.5-5.1); Sodium 133 mmol/L (136-145); Total Bilirubin 1.2 mg/dL (0.15-1.2); Total Protein 5.7 g/dL (6.6-8.7)
--- NOTE | 2020-06-06 08:29 | PM.PN ---
Subjective Subjective: Interval history: Patient objectively improved this morning. He is much more alert. Denies chest pain, shortness of breath or abdominal pain. Reports that he has large bowel movements each morning and he thinks he soiled himself this morning as well. Urine is growing coag negative staph and this could possibly be related to Miguel catheter. Blood cultures so far negative. Vitals/I&O/Wt Last Vital Signs Temp 98.8 F 06/06/20 07:44 Pulse 90 06/06/20 07:44 Resp 22 H 06/06/20 07:44 BP 126/71 06/06/20 07:44 Pulse Ox 93 06/06/20 07:44 06/05/20 06/06/20 06/06/20 22:59 06:59 14:59 Intake Total 1320 / 1720 50 / 1770 Output Total 800 / 800 700 / 1500 Balance 520 / 920 -650 / 270 Physical Exam Narrative: EXAM NARRATIVE: Overall decreased air movement but otherwise clear lungs. Heart is regular. No lower extremity edema. Multiple skin abrasions but do not appear infected. Urinary Catheter Management^: Miguel: Cath Placed During This Visit: yes Reason for Continuing Indwelling Catheter: Assist Healing of Perineal & Sacral Wounds- Incontinent Patients Urinary Catheter Date of Insertion: 06/03/20 Urinary Catheter Time of Insertion: 11:14 Data : 06/06/20 05:50 06/06/20 05:50 Micro: Microbiology 06/03/20 11:10 Urine Culture - Preliminary Urine,Clean Catch Coagulase negativ staphylococc A&P Assessment and plan (1) Multiple sclerosis: Status: Acute (2) Neurogenic bladder: Status: Acute (3) Urinary tract infection: Status: Acute (4) Pressure ulcer: Status: Acute (5) Pneumonia: Status: Acute (6) Acute anemia: Status: Acute (7) Upper GI bleed: Status: Acute (8) NSAID induced gastritis: Status: Acute (9) Dehydration: Status: Acute (10) Hypokalemia: Status: Acute (11) Rhabdomyolysis: Acute, appears traumatic secondary to falls. Present on admission. Status: Acute Additional A&P Information PLAN: I will continue current monitoring and treatment including antibiotics and fluids. Will consider de-escalating antibiotics tomorrow. Continue with physical and Occupational Therapy. Check CK in a.m. Attestations Medical Necessity Statement*: Patient with generalized weakness, infectious process and acute rhabdomyolysis along with underlying MS requires close inpatient monitoring and treatment. Coding Level of Care Code Acute School Bus Driver for Chg Fwd Diagnoses Multiple sclerosis G35 Neurogenic bladder N31.9 Urinary tract infection N39.0 Pressure ulcer L89.90 Pneumonia J18.9 Acute anemia D64.9 Upper GI bleed K92.2 NSAID induced gastritis K29.60; T39.395A Dehydration E86.0 Hypokalemia E87.6 Rhabdomyolysis M62.82
[2020-06-06] MEDS: folic acid 1 mg Tablet PO ×2 (08:43→18:19)
[2020-06-06] MEDS: pantoprazole DR 40 mg Tablet PO ×2 (08:43→18:19)
[2020-06-06] MEDS: collagenase oint 30 gm 1 APPLIC TOPICAL (09:25)
--- NOTE | 2020-06-06 11:33 | PC.SOCIAL ---
Erica Levine is patient sister and her number is [phone]. Would like to be kept updated.
[2020-06-06] MEDS: iron sucrose 200 MG in sodium chloride 0.9% (100 ml) 100 ML 220 MG IV (12:18)
--- NOTE | 2020-06-06 12:19 | PC.CHAP ---
Pastoral Care Encounter/Spiritual Assessment Type of Contact [] Declined blood splatter analyst visit [] Patient/Family/Request visit [] Outpatient visit [xx] Follow-up visit [] Physician referral [] Code/Alert [] Routine visit [] Staff referral [] Actively dying [] Patient sleeping [] Family support [] [] Out of room [] Palliative care [] [] Receiving care in room [] Pre-surgical visit [] Trauma [] Long length of stay [] ICU visit [] Other: Relational/Emotional Strength [] Patient feels connected with others/family/visitors/staff [] Distress [] Loneliness/isolation [] Abandonment Spirituality of Patient [] Person of Prisca [] Attends Anabaptist of their Prisca [] Believes in Prayer [] Reads Bible or Hoahaoism materials [] There are Spiritual issues to be addressed Woodworking Machinist Interventions [] Prayer [] Active listening [] Non-anxious presence [] Spiritual/emotional support [] Crisis/trauma care [] Spiritual counseling [] Bereavement support [] Provided bereavement packet [] Provided Bible/devotional materials [] Provided toy/stuffed animal, coloring book to patient or family member [] Provided Communion [] Anointing/[place] [] Salvation [] Completed spiritual assessment [] Other: Impact on Illness or Injury [] Angry [] Fearful [] Anxious [] Often cries [] Exhaustion [] Unable to work [] Unable to attend quaker [] Unable to walk/stand [] Unable to read [] Unable to drive [] Unable to eat/drink [] Unable to sleep [] Unable to be with family [] Patient intubated [] Other: Summary Visit not completed as he was receiving discharge instructions. Time spent with patient 1 minute
[2020-06-06] MEDS: levofloxacin-dextrose 5 % 750 MG/150 ML PREMIX 100 MG IV (18:21)
[2020-06-07] VITALS (7 sets, daily range): BP systolic 92–139; BP diastolic 60–72; PULSE 79–98; RESP 17–18; TEMP 36.5–38; O2SAT 94–98
[2020-06-07] MEDS: lactated ringers 1,000 ML 175 ML IV ×3 (01:45→17:36)
[2020-06-07] MEDS: piperacillin-tazobactam 3.375 GM in sodium chloride 0.9% (plus) 50 ML IV (05:02)
[2020-06-07 06:39] LABS: Basophils % 0.8 %; Eosinophils # 0.2 10^3/uL (0.0-0.8); Eosinophils % 3.8 %; Hematocrit 25.4 % (42.0-52.0); Hemoglobin 8.1 g/dL (11.7-16.6); Lymphocytes # 0.8 10^3/uL (0.8-4.8); Lymphocytes % 17.2 %; Mean Corpuscular HGB Conc 31.9 g/dL (30.0-36.0); Mean Corpuscular Hemoglobin 26.8 pg (28.0-34.0); Mean Corpuscular Volume 84.1 fL (80-94); Mean Platelet Volume 9.6 fL (7.4-10.4); Monocytes # 0.3 10^3/uL (0.2-0.9); Monocytes % 7.2 %; Neutrophils # 3.28 10^3/uL (1.8-7.7); Neutrophils % 69.5 %; Nucleated Red Blood Cells % 0 %; Platelet Count 227 10^3/cmm (130-400); Red Blood Count 3.02 10^6/uL (4.1-5.3); Red Cell Distribution Width 14.9 % (12.1-15.1); White Blood Count 4.7 10^3/uL (4.0-10.0)
[2020-06-07 08:40] LABS: Alanine Aminotransferase 14 U/L (0-41); Albumin Level 2.2 g/dL (3.5-5.2); Alkaline Phosphatase 57 IU/L (40-130); Aspartate Amino Transferase 25 U/L (0-40); Blood Urea Nitrogen 8 mg/dL (8-23); Calcium 8.1 mg/dL (8.5-10.5); Carbon Dioxide 17 mmol/L (22-29); Chloride 102 mmol/L (98-107); Creatine Phosphokinase 141 U/L (39-308); Creatinine Clr Calc Pharmacy 112.6013; Globulin 3.1 g/dL (1.3-4.6); Glucose 87 mg/dL (65-115); Magnesium 1.9 mg/dL (1.7-2.3); Osmolality Calculated 266 mOsm/kg (285-295); Sodium 129 mmol/L (136-145); Total Protein 5.3 g/dL (6.6-8.7)
[2020-06-07 08:50] LABS: Anion Gap 14.1 (5-19); Potassium 4.1 mmol/L (3.5-5.1)
--- NOTE | 2020-06-07 09:02 | PM.PN ---
Subjective Subjective: Interval history: Patient reports that he did not sleep last night and this morning he wants to sleep. Denies shortness of breath or chest pain. Vitals/I&O/Wt Last Vital Signs Temp 98.3 F 06/07/20 08:00 Pulse 81 06/07/20 08:00 Resp 17 06/07/20 08:00 BP 136/72 06/07/20 08:00 Pulse Ox 96 06/07/20 08:00 06/06/20 06/07/20 06/07/20 22:59 06:59 14:59 Intake Total 1120 / 2400 1050 / 3450 Output Total 2450 / 3300 1300 / 4600 Balance -1330 / -900 -250 / -1150 Physical Exam Narrative: EXAM NARRATIVE: Overall decreased air movement but otherwise clear lungs. Heart is regular. No lower extremity edema. Multiple skin abrasions but do not appear infected. Urinary Catheter Management^: Miguel: Cath Placed During This Visit: yes Reason for Continuing Indwelling Catheter: Assist Healing of Perineal & Sacral Wounds- Incontinent Patients Urinary Catheter Date of Insertion: 06/03/20 Urinary Catheter Time of Insertion: 11:14 Data : 06/07/20 06:19 06/07/20 06:19 A&P Assessment and plan (1) Multiple sclerosis: Status: Acute (2) Neurogenic bladder: Status: Acute (3) Urinary tract infection: Status: Acute (4) Pressure ulcer: Status: Acute (5) Pneumonia: Status: Acute (6) Acute anemia: Status: Acute (7) Upper GI bleed: Status: Acute (8) NSAID induced gastritis: Status: Acute (9) Dehydration: Status: Acute (10) Hypokalemia: Status: Acute (11) Rhabdomyolysis: Acute, appears traumatic secondary to falls. Present on admission. Status: Acute Additional A&P Information PLAN: Cultures are negative so far except urine growing coag negative staph. This could be related to Miguel catheter. We will continue Levaquin and change Zosyn to ceftriaxone. Decrease IV fluids to 50 mL/h and encouraged oral intake. Continue with therapy. Patient will need to be placed to nursing facility for rehabilitation. Attestations Medical Necessity Statement*: Patient with generalized weakness requires close inpatient monitoring and treatment till deemed safe for discharge. Coding Level of Care Code Acute Cleaning Validation Consultant for g Fwd Diagnoses Multiple sclerosis G35 Neurogenic bladder N31.9 Urinary tract infection N39.0 Pressure ulcer L89.90 Pneumonia J18.9 Acute anemia D64.9 Upper GI bleed K92.2 NSAID induced gastritis K29.60; T39.395A Dehydration E86.0 Hypokalemia E87.6 Rhabdomyolysis M62.82
[2020-06-07] MEDS: collagenase oint 30 gm 1 APPLIC TOPICAL (09:06)
[2020-06-07] MEDS: folic acid 1 mg Tablet PO ×2 (09:09→17:36)
[2020-06-07] MEDS: pantoprazole DR 40 mg Tablet PO ×2 (09:09→17:36)
[2020-06-07] MEDS: cefTRIAXone 1,000 MG in sodium chloride 0.9% (plus) 50 ML 100 MG IV (10:38)
[2020-06-07] MEDS: levofloxacin-dextrose 5 % 750 MG/150 ML PREMIX 100 MG IV (17:35)
[2020-06-08] VITALS (8 sets, daily range): BP systolic 100–143; BP diastolic 57–75; PULSE 74–88; RESP 17–19; TEMP 36.4–38; O2SAT 95–99
[2020-06-08] MEDS: folic acid 1 mg Tablet PO ×2 (08:11→17:36)
[2020-06-08] MEDS: pantoprazole DR 40 mg Tablet PO ×2 (08:11→17:36)
[2020-06-08] MEDS: collagenase oint 30 gm 1 APPLIC TOPICAL (08:14)
--- NOTE | 2020-06-08 09:20 | PM.PN ---
Subjective Subjective: Interval history: Patient appears to be much more alert this morning. He had fever 100.4 yesterday evening and this morning. His urine is growing staph hominis which is resistant to penicillin, ceftriaxone and fluoroquinolones. Vitals/I&O/Wt Last Vital Signs Temp 100.4 F H 06/08/20 07:16 Pulse 80 06/08/20 08:41 Resp 19 H 06/08/20 07:16 BP 122/65 06/08/20 07:16 Pulse Ox 97 06/08/20 08:41 06/07/20 06/08/20 06/08/20 22:59 06:59 14:59 Intake Total 120 / 2120 250 / 250 Output Total 1950 / 3350 1200 / 4550 Balance -1830 / -1230 -1200 / -2430 250 / 250 Physical Exam Narrative: EXAM NARRATIVE: Overall decreased air movement but otherwise clear lungs. Heart is regular. No lower extremity edema. Multiple skin abrasions but do not appear infected. Urinary Catheter Management^: Miguel: Cath Placed During This Visit: yes Reason for Continuing Indwelling Catheter: Assist Healing of Perineal & Sacral Wounds- Incontinent Patients Urinary Catheter Date of Insertion: 06/03/20 Urinary Catheter Time of Insertion: 11:14 Data : 06/07/20 06:19 06/07/20 06:19 Micro: Microbiology 06/03/20 11:10 Urine Culture - Final Urine,Clean Catch Staphylococcus hominis A&P Assessment and plan (1) Multiple sclerosis: Status: Acute (2) Neurogenic bladder: Status: Acute (3) Urinary tract infection: Status: Acute (4) Pressure ulcer: Status: Acute (5) Pneumonia: Status: Acute (6) Acute anemia: Status: Acute (7) Upper GI bleed: Status: Acute (8) NSAID induced gastritis: Status: Acute (9) Dehydration: Status: Acute (10) Hypokalemia: Status: Acute (11) Rhabdomyolysis: Acute, appears traumatic secondary to falls. Present on admission. Status: Acute Additional A&P Information PLAN: Obtain labs this morning including blood cultures. Change antibiotic to vancomycin Restart home medications including baclofen and Celexa. Hold Flomax for now. Attestations Medical Necessity Statement*: Patient with MS presents with UTI and now with fever requiring close inpatient monitoring and treatment. Coding Level of Care Code Acute Claims Adjuster Supervisor for [facility] Diagnoses Multiple sclerosis G35 Neurogenic bladder N31.9 Urinary tract infection N39.0 Pressure ulcer L89.90 Pneumonia J18.9 Acute anemia D64.9 Upper GI bleed K92.2 NSAID induced gastritis K29.60; T39.395A Dehydration E86.0 Hypokalemia E87.6 Rhabdomyolysis M62.82
--- NOTE | 2020-06-08 09:30 | PC.SOCIAL ---
IM follow up explained and copy provided to patient. Verbalized understanding.
[2020-06-08] MEDS: vancomycin 1,000 MG in sodium chloride 0.9% 250 ML 250 MG IV ×2 (10:03→17:37)
[2020-06-08] MEDS: citalopram 20 mg Tablet PO (10:05)
[2020-06-08] MEDS: lactated ringers 1,000 ML 175 ML IV (10:13)
[2020-06-08 11:11] LABS: Basophils % 0.7 %; Eosinophils # 0.1 10^3/uL (0.0-0.8); Eosinophils % 2.6 %; Hematocrit 29.7 % (42.0-52.0); Lymphocytes # 0.8 10^3/uL (0.8-4.8); Mean Corpuscular HGB Conc 30.3 g/dL (30.0-36.0); Mean Corpuscular Hemoglobin 26.5 pg (28.0-34.0); Mean Corpuscular Volume 87.4 fL (80-94); Mean Platelet Volume 9.5 fL (7.4-10.4); Monocytes # 0.4 10^3/uL (0.2-0.9); Monocytes % 8.6 %; Neutrophils # 2.66 10^3/uL (1.8-7.7); Neutrophils % 63.6 %; Nucleated Red Blood Cells % 0 %; Platelet Count 256 10^3/cmm (130-400); White Blood Count 4.2 10^3/uL (4.0-10.0)
[2020-06-08 11:38] LABS: Alanine Aminotransferase 16 U/L (0-41); Albumin Level 2.5 g/dL (3.5-5.2); Alkaline Phosphatase 64 IU/L (40-130); Anion Gap 11.8 (5-19); Aspartate Amino Transferase 24 U/L (0-40); Blood Urea Nitrogen 10 mg/dL (8-23); Calcium 8.1 mg/dL (8.5-10.5); Carbon Dioxide 18 mmol/L (22-29); Chloride 98 mmol/L (98-107); Creatinine Clr Calc Pharmacy 112.6013; Globulin 3.3 g/dL (1.3-4.6); Glucose 137 mg/dL (65-115); Osmolality Calculated 259 mOsm/kg (285-295); Potassium 3.8 mmol/L (3.5-5.1); Sodium 124 mmol/L (136-145); Total Bilirubin 0.7 mg/dL (0.15-1.2); Total Protein 5.8 g/dL (6.6-8.7)
[2020-06-08] MEDS: baclofen 10 mg Tablet 20 MG PO ×2 (14:31→21:55)
[2020-06-08] MEDS: diazePAM 5 mg Tablet 10 MG PO (21:55)
[2020-06-09] MEDS: vancomycin 1,000 MG in sodium chloride 0.9% 250 ML 250 MG IV ×3 (00:26→17:47)
[2020-06-09 04:00] VITALS: BP 141/79; PULSE 78; RESP 17; TEMP 37.1; O2SAT 99
--- NOTE | 2020-06-09 04:45 | PC.NURSE ---
pt turned information technology security manager light to notify nurse that his bowels had moved, upon turning on the light, pt had blankets bunched up in lap with blood on blankets. corona catheter was lying on bed, balloon inflated fully intact, noticeable bleeding from urethra. pt stated he was masturbating when it came out. Dr. Sparks was notified and another corona catheter was placed with small clots and hematuria noted in tubing. pt was educated not to be pulling on catheter and that there is a time and place for sexual behaviors.
[2020-06-09] MEDS: lactated ringers 1,000 ML 50 ML IV (06:32)
[2020-06-09 06:48] LABS: Alanine Aminotransferase 19 U/L (0-41); Albumin Level 2.6 g/dL (3.5-5.2); Alkaline Phosphatase 58 IU/L (40-130); Blood Urea Nitrogen 10 mg/dL (8-23); Calcium 7.8 mg/dL (8.5-10.5); Carbon Dioxide 18 mmol/L (22-29); Chloride 102 mmol/L (98-107); Globulin 2.6 g/dL (1.3-4.6); Glomerular Filtration Rate 169.6 mL/min (90-130); Glucose 94 mg/dL (65-115); Magnesium 2.1 mg/dL (1.7-2.3); Osmolality Calculated 271 mOsm/kg (285-295); Sodium 131 mmol/L (136-145); Total Bilirubin 0.7 mg/dL (0.15-1.2); Total Protein 5.2 g/dL (6.6-8.7)
[2020-06-09 06:52] LABS: Anion Gap 15.4 (5-19); Aspartate Amino Transferase 30 U/L (0-40); Potassium 4.4 mmol/L (3.5-5.1)
[2020-06-09 07:11] VITALS: BP 134/75; PULSE 86; RESP 18; TEMP 37.6; O2SAT 97
[2020-06-09 08:14] LABS: Basophils % 0.6 %; Eosinophils # 0.1 10^3/uL (0.0-0.8); Eosinophils % 2.4 %; Hemoglobin 9.1 g/dL (11.7-16.6); Lymphocytes % 19.4 %; Mean Corpuscular HGB Conc 31.4 g/dL (30.0-36.0); Mean Corpuscular Hemoglobin 26.1 pg (28.0-34.0); Mean Corpuscular Volume 83.3 fL (80-94); Monocytes # 0.4 10^3/uL (0.2-0.9); Monocytes % 7.7 %; Neutrophils # 3.38 10^3/uL (1.8-7.7); Neutrophils % 68.1 %; Nucleated Red Blood Cells % 0 %; Platelet Count 220 10^3/cmm (130-400); Red Blood Count 3.48 10^6/uL (4.1-5.3); Red Cell Distribution Width 14.8 % (12.1-15.1)
[2020-06-09 08:49] LABS: Vancomycin Trough 18.6 ug/mL (10-15)
[2020-06-09] MEDS: collagenase oint 30 gm 1 APPLIC TOPICAL (10:03)
[2020-06-09 11:12] VITALS: BP 144/77; PULSE 86; RESP 18; TEMP 37.2; O2SAT 93
[2020-06-09] MEDS: baclofen 10 mg Tablet 20 MG PO ×2 (15:51→21:38)
[2020-06-09 16:00] VITALS: BP 96/58; PULSE 98; RESP 16; TEMP 37.3; O2SAT 96
--- NOTE | 2020-06-09 16:17 | P.PN_ITS ---
Subjective Subjective: Interval history: He states that his recent ordeal has left him somewhat fearful of his overall condition, however, currently he is doing quite all right. He does ask for some cold tap water, does understand that it needs to be thickened. Discussed with his nurse. Denies trouble breathing or cough. No chest pain or pressure. Vitals/I&O/Wt Last Vital Signs Temp 99.1 F 06/09/20 16:00 Pulse 98 06/09/20 16:00 Resp 16 06/09/20 16:00 BP 96/58 06/09/20 16:00 Pulse Ox 96 06/09/20 16:00 06/09/20 06/09/20 06/09/20 06:59 14:59 22:59 Intake Total 750 / 2480 490 / 490 Output Total 1725 / 2275 775 / 775 Balance -975 / 205 -285 / -285 Physical Exam Const: COMMON NORMALS: no acute distress and patient oriented x3 GENERAL APPEARANCE: cooperative ORIENTATION/CONSCIOUSNESS: Yes awake OTHER: Generally weak HENMT: COMMON NORMALS: oropharynx normal Neck/C-Spine: COMMON NORMALS: no JVD Resp: COMMON NORMALS: normal respiratory effort and clear to auscultation bilaterally AUSCULTATION: clear to auscultation bilaterally Cardio: COMMON NORMALS: no JVD, regular rhythm, S1 normal heart sound present, S2 normal heart sound present and No murmurs present (Cardio) RHYTHM: regular rhythm HEART SOUNDS: S1 normal heart sound present and S2 normal heart sound present GI: COMMON NORMALS: Normal to inspection, nondistended, normoactive bowel sounds present, Soft to palpation and non-tender PALPATION: Yes Soft to palpation Extremity: COMMON NORMALS: no joint enlargement and no pedal edema Neuro: COMMON NORMALS: patient oriented x3 and moves all extremities Skin: COMMON NORMALS: no rashes or lesions noted GENERAL SKIN EXAM: no rashes or lesions noted Urinary Catheter Management^: Miguel: Cath Placed During This Visit: yes, but has since been removed by the nurse Reason for Continuing Indwelling Catheter: Assist healing open wound Urinary Catheter Date of Insertion: 06/09/20 Urinary Catheter Time of Insertion: 04:30 Date Urinary Catheter Removed: 06/09/20 Time Urinary Catheter Discontinued: 04:15 Data : 06/09/20 05:55 06/09/20 05:55 Micro: Microbiology 06/08/20 10:31 Blood Culture - Preliminary Blood NEGATIVE TO DATE 06/08/20 10:30 Blood Culture - Preliminary Blood NEGATIVE TO DATE 06/03/20 11:37 Blood Culture - Final Blood NO GROWTH AFTER 5 DAYS 06/03/20 11:37 Blood Culture - Final Blood NO GROWTH AFTER 5 DAYS A&P Assessment and plan (1) Urinary tract infection: For now continue vancomycin while in the hospital given multidrug- resistant organism. Status: Acute (2) Pneumonia: Resolving. He is oxygenating well on 2 L nasal cannula. Currently only on vancomycin. Continue for now. Monitor. Denies shortness of breath or cough. Will DC IV fluid. Status: Acute (3) Multiple sclerosis: Blood pressure soft, and so Flomax held. He is overall doing all right. Denies any pain or discomfort. He is feeding himself lunch. With poor nutrition, hydration recently. Continue PT, OT. Pending arrangements for rehabilitation at SNF. Status: Acute (4) Neurogenic bladder: Follow-up with urology. Status: Acute (5) Pressure ulcer: Status: Acute (6) Acute anemia: Status: Acute (7) Upper GI bleed: Hemoglobin is stable. Has not required any transfusion. Status: Acute (8) NSAID induced gastritis: Avoid NSAIDs. Status: Acute (9) Dehydration: Received IV hydration. Encourage oral intake. Status: Acute (10) Hypokalemia: Status: Acute (11) Rhabdomyolysis: Acute, appears traumatic secondary to falls. Present on admission. Resolved. Hyponatremia: Improving. Encourage oral intake. Status: Acute Attestations Medical Necessity Statement*: Continue admission for assessment management of multidrug-resistant UTI in the setting of MS, neurogenic bladder, recently with functional decline, multiple falls, resulting in rhabdomyolysis. Discharge arrangements. Coding Level of Care Code Acute Draw In Hand for [facility] Fwd Diagnoses Urinary tract infection N39.0 Pneumonia J18.9 Multiple sclerosis G35 Neurogenic bladder N31.9 Pressure ulcer L89.90 Acute anemia D64.9 Upper GI bleed K92.2 NSAID induced gastritis K29.60; T39.395A Dehydration E86.0 Hypokalemia E87.6 Rhabdomyolysis M62.82
[2020-06-09 20:00] VITALS: BP 108/67; PULSE 91; RESP 17; TEMP 37.5; O2SAT 98
[2020-06-10] VITALS: BP 123/63; PULSE 75; RESP 17; TEMP 37.7; O2SAT 97
[2020-06-10] MEDS: vancomycin 1,000 MG in sodium chloride 0.9% 250 ML 250 MG IV ×3 (01:22→17:42)
[2020-06-10 04:00] VITALS: BP 122/69; PULSE 72; RESP 17; TEMP 37.6; O2SAT 97
[2020-06-10 06:12] LABS: Basophils % 0.6 %; Eosinophils # 0.2 10^3/uL (0.0-0.8); Eosinophils % 2.5 %; Hematocrit 28.9 % (42.0-52.0); Hemoglobin 8.9 g/dL (11.7-16.6); Lymphocytes # 1.3 10^3/uL (0.8-4.8); Lymphocytes % 18.8 %; Mean Corpuscular HGB Conc 30.8 g/dL (30.0-36.0); Mean Corpuscular Hemoglobin 25.9 pg (28.0-34.0); Mean Platelet Volume 10.1 fL (7.4-10.4); Monocytes # 0.6 10^3/uL (0.2-0.9); Monocytes % 8.1 %; Neutrophils # 4.68 10^3/uL (1.8-7.7); Neutrophils % 68.5 %; Nucleated Red Blood Cells % 0 %; Platelet Count 201 10^3/cmm (130-400); Red Blood Count 3.44 10^6/uL (4.1-5.3); Red Cell Distribution Width 15.2 % (12.1-15.1); White Blood Count 6.8 10^3/uL (4.0-10.0)
[2020-06-10 06:34] LABS: Alanine Aminotransferase 26 U/L (0-41); Albumin Level 2.6 g/dL (3.5-5.2); Alkaline Phosphatase 69 IU/L (40-130); Anion Gap 13.9 (5-19); Aspartate Amino Transferase 33 U/L (0-40); Blood Urea Nitrogen 11 mg/dL (8-23); Calcium 8.1 mg/dL (8.5-10.5); Carbon Dioxide 20 mmol/L (22-29); Chloride 102 mmol/L (98-107); Globulin 3.2 g/dL (1.3-4.6); Glomerular Filtration Rate 137.4 mL/min (90-130); Glucose 92 mg/dL (65-115); Magnesium 2.3 mg/dL (1.7-2.3); Osmolality Calculated 273 mOsm/kg (285-295); Potassium 3.9 mmol/L (3.5-5.1); Sodium 132 mmol/L (136-145); Total Bilirubin 0.8 mg/dL (0.15-1.2); Total Protein 5.8 g/dL (6.6-8.7)
[2020-06-10 08:00] VITALS: BP 125/70; PULSE 79; RESP 18; O2SAT 98
[2020-06-10] MEDS: oxybutynin 5 mg Tablet PO (09:05)
[2020-06-10] MEDS: folic acid 1 mg Tablet PO ×2 (09:05→17:42)
[2020-06-10] MEDS: citalopram 20 mg Tablet PO (09:05)
[2020-06-10] MEDS: baclofen 10 mg Tablet 20 MG PO ×3 (09:05→21:39)
[2020-06-10] MEDS: pantoprazole DR 40 mg Tablet PO ×2 (09:05→17:42)
--- NOTE | 2020-06-10 10:05 | PC.SOCIAL ---
IMM Updated Updated pt on Pg 2 IMM. No questions voiced. Provided pt a copy. Signed, dated, & time copy in chart.
[2020-06-10 10:53] LABS: SARS Covid-2 Antigen Negative (Negative)
[2020-06-10 11:03] VITALS: BP 100/63; PULSE 71; RESP 18; TEMP 37; O2SAT 98
[2020-06-10] MEDS: collagenase oint 30 gm 1 APPLIC TOPICAL (15:52)
[2020-06-10 16:00] VITALS: BP 120/69; PULSE 70; RESP 18; TEMP 37; O2SAT 100
--- NOTE | 2020-06-10 16:34 | PM.PN ---
Subjective Subjective: Interval history: He reports he is doing all right. Denies trouble breathing. Denies cough. Denies cough with food or drink. Appetite has been good. No nausea vomiting or diarrhea. Vitals/I&O/Wt Last Vital Signs Temp 98.6 F 06/10/20 16:00 Pulse 70 06/10/20 16:00 Resp 18 06/10/20 16:00 BP 120/69 06/10/20 16:00 Pulse Ox 100 06/10/20 16:00 06/10/20 06/10/20 06/10/20 06:59 14:59 22:59 Intake Total 250 / 1490 610 / 610 Output Total 750 / 2175 350 / 350 Balance -500 / -685 260 / 260 Physical Exam Const: COMMON NORMALS: no acute distress and patient oriented x3 GENERAL APPEARANCE: cooperative ORIENTATION/CONSCIOUSNESS: Yes awake OTHER: Generally weak HENMT: COMMON NORMALS: oropharynx normal Neck/C-Spine: COMMON NORMALS: no JVD Resp: COMMON NORMALS: normal respiratory effort and clear to auscultation bilaterally AUSCULTATION: clear to auscultation bilaterally Cardio: COMMON NORMALS: no JVD, regular rhythm, S1 normal heart sound present, S2 normal heart sound present and No murmurs present (Cardio) RHYTHM: regular rhythm HEART SOUNDS: S1 normal heart sound present and S2 normal heart sound present GI: COMMON NORMALS: Normal to inspection, nondistended, normoactive bowel sounds present, Soft to palpation and non-tender PALPATION: Yes Soft to palpation Extremity: COMMON NORMALS: no joint enlargement and no pedal edema Neuro: COMMON NORMALS: patient oriented x3 and moves all extremities Skin: LESIONS: lesion noted (Chronic lesion right ischium with ulceration about 4 cm in diameter, with ) Necrotic base, healthy appearing subcutaneous tissue rhythm, without surrounding erythema. No drainage. Urinary Catheter Management^: Miguel: Cath Placed During This Visit: yes, but has since been removed by the nurse Reason for Continuing Indwelling Catheter: Assist Healing of Perineal & Sacral Wounds- Incontinent Patients Urinary Catheter Date of Insertion: 06/09/20 Urinary Catheter Time of Insertion: 04:30 Date Urinary Catheter Removed: 06/09/20 Time Urinary Catheter Discontinued: 04:15 Data : 06/10/20 05:34 06/10/20 05:34 Micro: Microbiology 06/08/20 10:31 Blood Culture - Preliminary Blood NEGATIVE TO DATE 06/08/20 10:30 Blood Culture - Preliminary Blood NEGATIVE TO DATE A&P Assessment and plan (1) Pressure ulcer: Persistent pressure ulcer of right lower buttock/upper thigh or ischial tuberosity, about 4 cm in diameter with subcutaneous tissue exposed, with necrotic central base. Continue Santyl, foam dressing. Will image with ultrasound to exclude any fluid collection given persistent fevers previously. Status: Acute (2) Urinary tract infection: For now continue vancomycin while in the hospital given multidrug-resistant organism. Once accepted for transfer to [facility] facility, may complete course with Bactrim. We will cautiously try to resume Flomax. Status: Acute (3) Pneumonia: Resolving. He is oxygenating well on 2 L nasal cannula. Currently only on vancomycin. Continue for now. Monitor. Denies shortness of breath or cough. Status: Acute (4) Multiple sclerosis: Blood pressure was soft, currently improving. We will try to cautiously resume Flomax He is overall doing all right. Denies any pain or discomfort. He is feeding himself lunch. With poor nutrition, hydration recently. Continue PT, OT. Pending arrangements for rehabilitation at SNF. Status: Acute (5) Neurogenic bladder: Follow-up with urology. Status: Acute (6) Acute anemia: Hemoglobin appears hovering around 9. Status: Acute (7) Upper GI bleed: Hemoglobin is stable. Has not required any transfusion. Status: Acute (8) NSAID induced gastritis: Avoid NSAIDs. Status: Acute (9) Dehydration: Received IV hydration. Encourage oral intake. Status: Acute (10) Hypokalemia: Status: Acute (11) Rhabdomyolysis: Acute, appears traumatic secondary to falls. Present on admission. Resolved. Status: Acute Additional A&P Information Hyponatremia: Improving. Encourage oral intake. Attestations Medical Necessity Statement*: Additional assessment for any other sources of persistent fever during his hospitalization. Continue IV antibiotics for treatment of complicated UTI in the setting of neurogenic bladder, resumption of Flomax in setting of soft blood pressures, monitoring after treatment of pneumonia, and disposition planning and arrangements. Coding Level of Care Code Acute Manager Student Services for [facility] Fwd Exam Comprehensive Diagnoses Pressure ulcer L89.90 Urinary tract infection N39.0 Pneumonia J18.9 Multiple sclerosis G35 Neurogenic bladder N31.9 Acute anemia D64.9 Upper GI bleed K92.2 NSAID induced gastritis K29.60; T39.395A Dehydration E86.0 Hypokalemia E87.6 Rhabdomyolysis M62.82
--- NOTE | 2020-06-10 16:55 | US_ITS ---
WS: [id number] ULTRASOUND SOFT TISSUES RIGHT gluteal region. HISTORY: R buttock lesion, exclude fluid collection COMPARISON: None available. TECHNIQUE: 2-D and color Doppler imaging is submitted. Ultrasound is directed to the RIGHT gluteal area in the area of clinical concern. There is a signific ant amount of soft tissue edema but no focal well formed fluid collection. There is no abscess. US/US soft tissue/extremity [id number] IMPRESSION: Large amount of soft tissue edema in the RIGHT gluteal region. No abscess.
[2020-06-10] MEDS: tamsulosin 0.4 mg Capsule PO (17:42)
[2020-06-10 20:00] VITALS: BP 105/64; PULSE 79; RESP 18; TEMP 37.2; O2SAT 98
[2020-06-11] VITALS: BP 123/68; PULSE 97; RESP 18; TEMP 37.6; O2SAT 98
[2020-06-11 01:33] LABS: Basophils % 0.5 %; Eosinophils # 0.1 10^3/uL (0.0-0.8); Eosinophils % 2.2 %; Hematocrit 27.7 % (42.0-52.0); Hemoglobin 8.8 g/dL (11.7-16.6); Lymphocytes # 1.2 10^3/uL (0.8-4.8); Lymphocytes % 19.6 %; Mean Corpuscular HGB Conc 31.8 g/dL (30.0-36.0); Mean Corpuscular Hemoglobin 26.4 pg (28.0-34.0); Mean Corpuscular Volume 83.2 fL (80-94); Mean Platelet Volume 9.8 fL (7.4-10.4); Monocytes # 0.4 10^3/uL (0.2-0.9); Neutrophils # 4.16 10^3/uL (1.8-7.7); Neutrophils % 69.5 %; Nucleated Red Blood Cells % 0 %; Platelet Count 255 10^3/cmm (130-400); Red Blood Count 3.33 10^6/uL (4.1-5.3); Red Cell Distribution Width 15.2 % (12.1-15.1)
[2020-06-11 01:44] LABS: Alanine Aminotransferase 25 U/L (0-41); Albumin Level 2.6 g/dL (3.5-5.2); Alkaline Phosphatase 72 IU/L (40-130); Aspartate Amino Transferase 30 U/L (0-40); Blood Urea Nitrogen 12 mg/dL (8-23); Carbon Dioxide 21 mmol/L (22-29); Chloride 104 mmol/L (98-107); Globulin 3.3 g/dL (1.3-4.6); Glomerular Filtration Rate 137.4 mL/min (90-130); Glucose 149 mg/dL (65-115); Magnesium 2.2 mg/dL (1.7-2.3); Osmolality Calculated 277 mOsm/kg (285-295); Sodium 132 mmol/L (136-145); Total Bilirubin 0.6 mg/dL (0.15-1.2); Total Protein 5.9 g/dL (6.6-8.7)
[2020-06-11 01:57] LABS: Vancomycin Trough 20.3 ug/mL (10-15)
[2020-06-11 02:15] LABS: Slide Review Slide Review Perform
--- NOTE | 2020-06-11 02:16 | PC.PHAR ---
Vancomycin trough on dosage of 1000mg IVPB every 8 hours is 20.3. Continue present dosage and repeat trough level in 24 hours.
--- NOTE | 2020-06-11 02:18 | PC.NURSE ---
Called pharmacy about vanco trough level of 20.3. Kevin said its right on the range and to go ahead and leave it. I repeated back to Kevin to go ahead and leave it and he said yes and that the level will be checked again after a couple of doses.
[2020-06-11] MEDS: vancomycin 1,000 MG in sodium chloride 0.9% 250 ML 250 MG IV ×3 (02:30→17:03)
[2020-06-11 04:00] VITALS: BP 104/69; PULSE 88; RESP 18; TEMP 37.8; O2SAT 96
[2020-06-11 07:44] VITALS: BP 113/71; PULSE 88; RESP 17; TEMP 37.7; O2SAT 97
[2020-06-11] MEDS: baclofen 10 mg Tablet 20 MG PO ×3 (11:23→21:41)
[2020-06-11] MEDS: collagenase oint 30 gm 1 APPLIC TOPICAL (11:24)
[2020-06-11] MEDS: folic acid 1 mg Tablet PO ×2 (11:24→17:05)
[2020-06-11] MEDS: pantoprazole DR 40 mg Tablet PO ×2 (11:24→17:05)
[2020-06-11] MEDS: citalopram 20 mg Tablet PO (11:24)
[2020-06-11 12:15] VITALS: BP 110/68; PULSE 90; RESP 18; TEMP 36.6; O2SAT 96
[2020-06-11 16:08] VITALS: BP 119/71; PULSE 88; RESP 18; TEMP 36.6; O2SAT 99
[2020-06-11] MEDS: tamsulosin 0.4 mg Capsule PO (17:05)
[2020-06-11 19:36] VITALS: BP 98/59; PULSE 84; RESP 18; TEMP 37.7; O2SAT 96
--- NOTE | 2020-06-11 19:39 | P.PN_ITS ---
Subjective Subjective: Interval history: He denies chest pain or pressure. Denies trouble breathing. Denies new symptoms. Vitals/I&O/Wt Last Vital Signs Temp 99.8 F H 06/11/20 19:36 Pulse 84 06/11/20 19:36 Resp 18 06/11/20 19:36 BP 98/59 06/11/20 19:36 Pulse Ox 96 06/11/20 19:36 06/11/20 06/11/20 06/11/20 06:59 14:59 22:59 Intake Total 250 / 1270 490 / 490 250 / 740 Output Total 500 / 1450 450 / 450 Balance -250 / -180 490 / 490 -200 / 290 Physical Exam Const: COMMON NORMALS: no acute distress, patient oriented x3 and alert GENERAL APPEARANCE: cooperative ORIENTATION/CONSCIOUSNESS: Yes awake OTHER: Generally weak HENMT: COMMON NORMALS: oropharynx normal Neck/C-Spine: COMMON NORMALS: no JVD Resp: COMMON NORMALS: normal respiratory effort and clear to auscultation bilaterally AUSCULTATION: clear to auscultation bilaterally Cardio: COMMON NORMALS: no JVD, regular rhythm, S1 normal heart sound present, S2 normal heart sound present and No murmurs present (Cardio) RHYTHM: regular rhythm HEART SOUNDS: S1 normal heart sound present and S2 normal heart sound present GI: COMMON NORMALS: Normal to inspection, nondistended, normoactive bowel sounds present, Soft to palpation and non-tender PALPATION: Yes Soft to palpation Extremity: COMMON NORMALS: no joint enlargement and no pedal edema Neuro: COMMON NORMALS: patient oriented x3 and moves all extremities SENSORIUM/ORIENTATION: Yes alert Skin: COMMON NORMALS: no rashes or lesions noted GENERAL SKIN EXAM: no rashes or lesions noted LESIONS: lesion noted (Chronic lesion right ischium with ulceration about 4 cm in diameter, with ) Urinary Catheter Management^: Miguel: Cath Placed During This Visit: yes, but has since been removed by the nurse Reason for Continuing Indwelling Catheter: Acute Urinary Retention or Obstruction Urinary Catheter Date of Insertion: 06/09/20 Urinary Catheter Time of Insertion: 04:30 Date Urinary Catheter Removed: 06/09/20 Time Urinary Catheter Discontinued: 04:15 Data : 06/11/20 00:46 06/11/20 00:46 A&P Assessment and plan (1) Pressure ulcer: Soft tissue edema surrounding the ulcer, minimal erythema. Possible surrounding cellulitis. Assessed with ultrasonography without finding of pus/fluid collection. Continue IV antibiotic for now with vancomycin. Persistent pressure ulcer of right lower buttock/upper thigh or ischial tuberosity, about 4 cm in diameter with subcutaneous tissue exposed, with necrotic central base. Continue Santyl, foam dressing. Status: Acute (2) Urinary tract infection: For now continue vancomycin while in the hospital given multidrug- resistant organism. Once accepted for transfer to shelter facility, may complete course with Bactrim. We will cautiously try to resume Flomax. Status: Acute (3) Pneumonia: Resolving. He is oxygenating well on 2 L nasal cannula. Currently only on vancomycin. Continue for now. Monitor. Denies shortness of breath or co ugh. Status: Acute (4) Multiple sclerosis: Blood pressure was soft, currently improving. We will try to cautiously resume Flomax He is overall doing all right. Denies any pain or discomfort. He is feeding himself lunch. With poor nutrition, hydration recently. Continue PT, OT. Pending arrangements for rehabilitation at SNF. Generally deconditioned, generally weak. Unable to care for self adequately at home. With pressure sore. I have reached out to his neurologist with regards to his current medication regimen. Status: Acute (5) Neurogenic bladder: Follow-up with urology. Status: Acute (6) Acute anemia: Hemoglobin appears hovering around 9. Status: Acute (7) Upper GI bleed: Hemoglobin is stable. Has not required any transfusion. Status: Acute (8) NSAID induced gastritis: Avoid NSAIDs. Status: Acute (9) Dehydration: Received IV hydration. Encourage oral intake. Status: Acute (10) Hypokalemia: Status: Acute (11) Rhabdomyolysis: Acute, appears traumatic secondary to falls. Present on admission. Resolved. Status: Acute Additional A&P Information Hyponatremia: Improving. Encourage oral intake. Attestations Medical Necessity Statement*: Continue admission for assessment of management of right posterior thigh cellulitis surrounding pressure ulcer, complicated UTI, in the setting of MS. With generalized weakness, deconditioning, inability to care for self at home at this time. Disposition planning and arrangements. Coding Level of Care Code Acute Senior Network Security Engineer for [facility] Diagnoses Pressure ulcer L89.90 Urinary tract infection N39.0 Pneumonia J18.9 Multiple sclerosis G35 Neurogenic bladder N31.9 Acute anemia D64.9 Upper GI bleed K92.2 NSAID induced gastritis K29.60; T39.395A Dehydration E86.0 Hypokalemia E87.6 Rhabdomyolysis M62.82
[2020-06-12] VITALS (7 sets, daily range): BP systolic 102–117; BP diastolic 60–75; PULSE 71–91; RESP 18–20; TEMP 36.6–37.7; O2SAT 90–98
--- NOTE | 2020-06-12 01:47 | PC.PHAR ---
Vancomycin trough on dose of 1000mg IVPB every 8 hours is 23.0. Dosage is reduced at 1000mg IVPB every 12 hours with another trough to be obtained before the fourth dose at this rate.
[2020-06-12] MEDS: collagenase oint 30 gm 1 APPLIC TOPICAL (10:20)
[2020-06-12] MEDS: folic acid 1 mg Tablet PO ×2 (10:21→18:00)
[2020-06-12] MEDS: pantoprazole DR 40 mg Tablet PO ×2 (10:21→18:00)
[2020-06-12] MEDS: citalopram 20 mg Tablet PO (10:22)
[2020-06-12] MEDS: baclofen 10 mg Tablet 20 MG PO ×3 (10:26→21:14)
[2020-06-12] MEDS: tamsulosin 0.4 mg Capsule PO (18:00)
[2020-06-12] MEDS: vancomycin 1,000 MG in sodium chloride 0.9% 250 ML 250 MG IV (18:28)
--- NOTE | 2020-06-12 19:44 | PM.PN ---
Subjective Subjective: Interval history: He is doing all right, except has not had a bowel movement in about 5 days now. Breathing comfortably. Denies pain or discomfort. Vitals/I&O/Wt Last Vital Signs Temp 97.8 F 06/12/20 15:00 Pulse 79 06/12/20 15:00 Resp 19 H 06/12/20 15:00 BP 110/65 06/12/20 15:00 Pulse Ox 97 06/12/20 15:00 06/12/20 06/12/20 06/12/20 06:59 14:59 22:59 Intake Total 50 / 50 100 / 150 Output Total 700 / 1150 Balance -700 / -360 50 / 50 100 / 150 Physical Exam Const: COMMON NORMALS: no acute distress, patient oriented x3 and alert GENERAL APPEARANCE: cooperative and comfortable ORIENTATION/CONSCIOUSNESS: Yes awake OTHER: Generally weak. HENMT: COMMON NORMALS: oropharynx normal Neck/C-Spine: COMMON NORMALS: no JVD Resp: COMMON NORMALS: normal respiratory effort and clear to auscultation bilaterally AUSCULTATION: clear to auscultation bilaterally Cardio: COMMON NORMALS: no JVD, regular rhythm, S1 normal heart sound present, S2 normal heart sound present and No murmurs present (Cardio) RHYTHM: regular rhythm HEART SOUNDS: S1 normal heart sound present and S2 normal heart sound present GI: COMMON NORMALS: Normal to inspection, nondistended, normoactive bowel sounds present, Soft to palpation and non-tender PALPATION: Yes Soft to palpation Extremity: COMMON NORMALS: no joint enlargement and no pedal edema Neuro: COMMON NORMALS: patient oriented x3 and moves all extremities SENSORIUM/ORIENTATION: Yes alert Skin: COMMON NORMALS: no rashes or lesions noted GENERAL SKIN EXAM: no rashes or lesions noted LESIONS: lesion noted (Chronic lesion right ischium with ulceration about 4 cm in diameter, with ) Urinary Catheter Management^: Miguel: Cath Placed During This Visit: yes, but has since been removed by the nurse Reason for Continuing Indwelling Catheter: Assist Healing of Perineal & Sacral Wounds- Incontinent Patients Urinary Catheter Date of Insertion: 06/09/20 Urinary Catheter Time of Insertion: 04:30 Date Urinary Catheter Removed: 06/09/20 Time Urinary Catheter Discontinued: 04:15 Data : 06/11/20 00:46 06/11/20 00:46 A&P Assessment and plan (1) Multiple sclerosis: Discussed MS with his neurologist, as well as with him. In light of aggressive MS, at this time glatimramer likely can be discontinued. with follow-up with neurology again in office for continued monitoring condition. He appears to be developing some severe constipation, without bowel movement for 5-6 days. Will give Dulcolax suppository. Start MiraLAX. With deconditioning, functional decline, inability to function at home independently. Arrangements are being made for placement to [facility] as per case management. Blood pressure was soft, currently improving. Tolerating Flomax Continue PT, OT. Pending arrangements for rehabilitation at SNF. Generally deconditioned, generally weak. Unable to care for self adequately at home. With pressure sore. Status: Acute (2) Pressure ulcer: Soft tissue edema surrounding the ulcer, minimal erythema. Possible surrounding cellulitis. Assessed with ultrasonography without finding of pus/fluid collection. Continue IV antibiotic for now with vancomycin. Persistent pressure ulcer of right lower buttock/upper thigh or ischial tuberosity, about 4 cm in diameter with subcutaneous tissue exposed, with necrotic central base. Continue Santyl, foam dressing. Status: Acute (3) Urinary tract infection: For now continue vancomycin while in the hospital given multidrug-resistant organism. Once accepted for transfer to [facility], may complete course with Bactrim. Flomax. Status: Acute (4) Pneumonia: Resolving. He is oxygenating well on 2 L nasal cannula. Currently only on vancomycin. Continue for now. Monitor. Denies shortness of breath or cough. Status: Acute (5) Neurogenic bladder: Follow-up with urology. Status: Acute (6) Acute anemia: Hemoglobin appears hovering around 9. Status: Acute (7) Upper GI bleed: Hemoglobin is stable. Has not required any transfusion. Status: Acute (8) NSAID induced gastritis: Avoid NSAIDs. Status: Acute (9) Dehydration: Received IV hydration. Encourage oral intake. Status: Acute (10) Hypokalemia: Status: Acute (11) Rhabdomyolysis: Acute, appears traumatic secondary to falls. Present on admission. Resolved. Status: Acute (12) Constipation: Dulcolax posterior. MiraLAX. Status: Acute Additional A&P Information Hyponatremia: Improving. Encourage oral intake. Attestations Medical Necessity Statement*: Continue admission for optimization of treatment of complications of MS, severe constipation, functional decline, pressure ulcer, as well as treatment of urinary tract infection, with disposition arrangements underway. Coding Level of Care Code Acute Phonograph Cartridge Assembler for [facility] Diagnoses Multiple sclerosis G35 Pressure ulcer L89.90 Urinary tract infection N39.0 Pneumonia J18.9 Neurogenic bladder N31.9 Acute anemia D64.9 Upper GI bleed K92.2 NSAID induced gastritis K29.60; T39.395A Dehydration E86.0 Hypokalemia E87.6 Rhabdomyolysis M62.82 Constipation K59.00
[2020-06-12] MEDS: polyethylene glycol 3350 Pkt 17 gm PO (21:15)
[2020-06-12] MEDS: bisacodyl 10 mg Supp PR (21:44)
[2020-06-13 04:00] VITALS: BP 111/56; PULSE 96; RESP 18; TEMP 37.2; O2SAT 98
--- NOTE | 2020-06-13 04:15 | PC.NURSE ---
Patient turned iron assorter light. When I checked on patient he wanted repositioned and his gown was bunched up with both sleeves on left arm. While getting patient settled I noticed his IV catheter had come out from underneath his venaguard dressing.
[2020-06-13] MEDS: vancomycin 1,000 MG in sodium chloride 0.9% 250 ML 250 MG IV (05:00)
[2020-06-13 07:15] VITALS: BP 112/68; PULSE 84; RESP 17; TEMP 37.7; O2SAT 96
[2020-06-13] MEDS: folic acid 1 mg Tablet PO (08:53)
[2020-06-13] MEDS: pantoprazole DR 40 mg Tablet PO (08:53)
[2020-06-13] MEDS: baclofen 10 mg Tablet 20 MG PO (08:53)
[2020-06-13] MEDS: citalopram 20 mg Tablet PO (08:53)
[2020-06-13] MEDS: polyethylene glycol 3350 Pkt 17 gm PO (08:54)
[2020-06-13] MEDS: collagenase oint 30 gm 1 APPLIC TOPICAL (08:54)
--- NOTE | 2020-06-13 09:16 | P.DS_ITS ---
Discharge Providers Date of Admission: 06/03/20 12:24 Date of Discharge: June 13, 2020 Attending Provider at Admission: Elia Bingham MD Attending Provider at Discharge: Cedrick You Primary Care Provider: aJy Espinoza DO Diagnoses at Discharge Discharge Diagnosis (1) Multiple sclerosis: Status: Acute (2) Pressure ulcer: Status: Acute (3) Urinary tract infection: Status: Acute (4) Pneumonia: Status: Acute (5) Neurogenic bladder: Status: Acute (6) Acute anemia: Status: Acute (7) Upper GI bleed: Status: Acute (8) NSAID induced gastritis: Status: Acute (9) Dehydration: Status: Acute (10) Hypokalemia: Status: Acute (11) Rhabdomyolysis: Status: Acute (12) Constipation: Status: Acute Reason for Visit Reason for Visit: FALL, PRESSURE SORE Hospital Course Hospital Course Very pleasant 59-year-old gentleman with history of MS was admitted for assessment management after fall from his chair to the ground, found covered in feces, urine, with pressure ulcer. With noted UTI on presentation. He has been nonambulatory for a long time. Has history of neurogenic bladder for which follows with urology. Antibiotics initially transitioned to vancomycin after cultures grew Staph hominis, 80-90,000 CFU, which was also multidrug resistant, sensitive to gentamicin, linezolid, nitrofurantoin, rifampin, tetracycline, Bactrim, vancomycin, daptomycin. With noted anemia on presentation, with suspected NSAID induced gastritis and related GI bleed, was started on twice daily PPI. NSAIDs were discontinued. Also noted minimal rhabdomyolysis on presentation. Received wound care for pressure ulcer. Was maintained on dysphagia diet, initially on antibiotic regimen for possible pneumonia, noted on chest x-ray, greater on the right side, this appears to have been likely aspiration pneumonitis. So far has done well with level 2 dysphagia diet without any noted further episodes of aspiration. Has done well since de- escalation of antibiotics, no trouble breathing, oxygenation remained stable. His hemoglobin has remained stable. Please avoid NSAIDs. Continue PPI. Follow-up hemoglobin level. If persistent/recurrent anemia, or dyspepsia symptoms, consider referral for additional assessment by endoscopy. Physical Exam Const: COMMON NORMALS: no acute distress and patient oriented x3 OTHER: He is awake, alert, slowly working on his breakfast. In good spirits. Ready to proceed to rehabilitation. HENMT: COMMON NORMALS: oropharynx normal Neck/C-Spine: COMMON NORMALS: no JVD Resp: COMMON NORMALS: normal respiratory effort and clear to auscultation bilaterally AUSCULTATION: clear to auscultation bilaterally Cardio: COMMON NORMALS: no JVD, regular rhythm, S1 normal heart sound present, S2 normal heart sound present and No murmurs present (Cardio) RHYTHM: regular rhythm HEART SOUNDS: S1 normal heart sound present and S2 normal heart sound present GI: COMMON NORMALS: Normal to inspection, nondistended, normoactive bowel sounds present, Soft to palpation and non-tender PALPATION: Yes Soft to palpa tion Extremity: COMMON NORMALS: no joint enlargement and no pedal edema Neuro: COMMON NORMALS: patient oriented x3 and moves all extremities Skin: COMMON NORMALS: no rashes or lesions noted GENERAL SKIN EXAM: no rashes or lesions noted Urinary Catheter Management^: Miguel: Cath Placed During This Visit: yes, but has since been removed by the nurse Reason for Continuing Indwelling Catheter: Assist Healing of Perineal & Sacral Wounds- Incontinent Patients Urinary Catheter Date of Insertion: 06/09/20 Urinary Catheter Time of Insertion: 04:30 Date Urinary Catheter Removed: 06/09/20 Time Urinary Catheter Discontinued: 04:15 Discharge Data Data Completed and Pending: Completed Studies During Hospitalization Category Date Time Status XR chest 1V awais ble 14636 Stat Exams 06/03/20 10:57 Completed US soft tissue/ex tremity 23417 Rout ine Ultrasound 06/10/20 16:55 Completed Pending at discharge Category Date Time Status Blood Culture Sta t Lab 06/08/20 10:31 Results Vancomycin Trough Timed Lab 06/14/20 04:00 Ordered Vitals: Last Vital Signs Temp 99.8 F H 06/13/20 07:15 Pulse 84 06/13/20 07:15 Resp 17 06/13/20 07:15 BP 112/68 06/13/20 07:15 Pulse Ox 96 06/13/20 07:15 Discharge Plan Discharge Patient Disposition: Xfer SNF Condition: Stable Prescriptions: New pantoprazole 40 mg Tablet,Delayed Release (Dr/Ec) 40 mg PO BID Qty: 60 RF: 0 folic acid 1 mg Tablet 1 mg PO BID Qty: 60 RF: 0 polyethylene glycol 3350 17 gram Powder In Packet 17 g PO BID Qty: 60 RF: 0 sulfamethoxazole-trimethoprim [Bactrim DS] 800-160 mg tablet 1 tab PO BID 5 Days Qty: 10 RF: 0 Continued sildenafil [Viagra] 100 mg tablet 100 mg PO DAILY PRN (Reason: sexual activity) Qty: 20 RF: 12 diazepam [Valium] 10 mg tablet 10 mg PO DAILY PRN (Reason: sedation) RF: 0 fluticasone propionate 50 mcg/actuation spray,suspension See Rx Instructions .ROUTE .COMPLEX Qty: 15.8 RF: 11 baclofen 20 mg tablet 20 mg PO TID RF: 0 citalopram 20 mg tablet 20 mg PO DAILY RF: 0 tamsulosin 0.4 mg capsule 0.4 mg PO DAILY RF: 0 oxybutynin chloride 5 mg tablet 5 mg PO DAILY RF: 0 Discontinued ibuprofen 200 mg capsule 200 mg PO Q6H PRN (Reason: Pain) RF: 0 glatiramer [Copaxone] 40 mg/mL syringe 40 mg SUBCUT .COMPLEX Qty: 12 RF: 11 omeprazole 20 mg capsule,delayed release(DR/EC) 20 mg PO DAILY RF: 0 Discharge Orders: Discharge Order (Routine); Ordered 06/13/20 Ordered By: Cedrick You Referrals: [facility] [place] [Outside] Kathy León MD [Physician] - 1 month Jay Espinoza DO [Primary Care Provider] - 4-7 days Discharge Diet: As Directed Discharge Activity: Increase activity as tolerated and As per PT/OT instructions Activity Restrictions/Additional Instructions: Maintain dysphagia level 2 diet. Continue speech therapy follow-up. Aspiration precautions. Reposition frequently. Continue wound care for pressure ulcer right upper thigh, clean daily with water, apply foam dressing. Please follow-up hemoglobin in 1 week to confirm resolution of GI bleed. Continue pantoprazole twice daily. If any recurrent anemia, persistent dyspepsia symptoms, consider referral for additional assessment by endoscopy. Complete antibiotic course with Bactrim for UTI, cellulitis. Resume follow-up with urology for neurogenic bladder. Avoid constipation. Discharge Attestations Time Spent in Discharge Care*: greater than 30 min Quality Metrics Clinical Quality Measures During this hospital stay, did patient experience: None Coding Level of Care Code Acute Process Engineering Technician for [facility] Fwd Diagnoses Multiple sclerosis G35 Pressure ulcer L89.90 Urinary tract infection N39.0 Pneumonia J18.9 Neurogenic bladder N31.9 Acute anemia D64.9 Upper GI bleed K92.2 NSAID induced gastritis K29.60; T39.395A Dehydration E86.0 Hypokalemia E87.6 Rhabdomyolysis M62.82 Constipation K59.00
[2020-06-13 11:55] VITALS: BP 103/65; PULSE 80; RESP 16; TEMP 37.2; O2SAT 94
--- NOTE | 2020-06-13 13:49 | PC.CHAP ---
Pastoral Care Encounter/Spiritual Assessment Type of Contact [] Declined color mixer visit [] Patient/Family/Request visit [] Outpatient visit [] Follow-up visit [] Physician referral [] Code/Alert [] Routine visit [] Staff referral [] Actively dying [] Patient sleeping [] Family support [] [] Out of room [] Palliative care [] [] Receiving care in room [] Pre-surgical visit [] Trauma [] Long length of stay [] ICU visit [] Other: Relational/Emotional Strength [] Patient feels connected with others/family/visitors/staff [] Distress [] Loneliness/isolation [] Abandonment Spirituality of Patient [] Person of Prisca [] Attends Spiritism of their Prisca [] Believes in Prayer [] Reads Bible or Jew materials [] There are Spiritual issues to be addressed Steaming Machine Operator Interventions [] Prayer [] Active listening [] Non-anxious presence [] Spiritual/emotional support [] Crisis/trauma care [] Spiritual counseling [] Bereavement support [] Provided bereavement packet [] Provided Bible/devotional materials [] Provided toy/stuffed animal, coloring book to patient or family member [] Provided Communion [] Anointing/[place] [] Salvation [] Completed spiritual assessment [] Other: Impact on Illness or Injury [] Angry [] Fearful [] Anxious [] Often cries [] Exhaustion [] Unable to work [] Unable to attend synagogue [] Unable to walk/stand [] Unable to read [] Unable to drive [] Unable to eat/drink [] Unable to sleep [] Unable to be with family [] Patient intubated [] Other: Summary Patient still in isolation. No visit. Time spent with patient
[2020-06-13 15:39] VITALS: BP 103/65; PULSE 80; RESP 16; TEMP 37.2; O2SAT 94
== END 2020-06-13 14:30 | disposition skilled nursing facility (03) | DRG 377 ==
LOC: ER 11:19 → MEDSURG 12:53
PROVIDERS: Admitting Provider Internal Medicine; Emergency Provider Family Medicine; PCP Family Medicine; Visit Provider Internal Medicine
DX: K92.2 Gastrointestinal hemorrhage, unspecified (principal); L89.313 Pressure ulcer of right buttock, stage 3; J69.0 Pneumonitis due to inhalation of food and vomit; N39.0 Urinary tract infection, site not specified; Z16.30 Resistance to unspecified antimicrobial drugs; G35 Multiple sclerosis; R29.6 Repeated falls; F41.9 Anxiety disorder, unspecified; N52.9 Male erectile dysfunction, unspecified; N31.9 Neuromuscular dysfunction of bladder, unspecified; D64.9 Anemia, unspecified; K29.60 Other gastritis without bleeding; T39.395A Adverse effect of other nonsteroidal anti-inflammatory drugs [NSAID], initial encounter; E86.0 Dehydration; E87.6 Hypokalemia; T79.6XXA Traumatic ischemia of muscle, initial encounter; K59.00 Constipation, unspecified; B95.8 Unspecified staphylococcus as the cause of diseases classified elsewhere
CPT/HCPCS: 12345; 36415; 36600; 51702; 71045; 76882; 80051; 80053; 80202; 81001; 82330; 82550; 82607; 82728; 82746; 82805; 83540; 83550; 83605; 83690; 83735; 84145; 84443; 85025; 85610; 85730; 87040; 87077; 87086; 87186; 87426; 92610; 96372; 97110; 97162; 97167; 97530; 97535; 99283; A9281; J0696; J1756; J1956; J2543; J3370; J3430; J3480; J7050

== ENCOUNTER → 2022-04-05 18:02 | Outpatient (BNVA) | payer MEDICARE, MEDICAID, SELFPAY | PROVIDERS: PCP Family Medicine; Visit Provider Family Medicine | DX: R41.82 Altered mental status, unspecified (principal) | CPT/HCPCS: 81003; 87077; 87086; 87184 ==

== ENCOUNTER → 2022-09-17 12:41 | Outpatient (BNVA) | payer MEDICARE, MEDICAID, SELFPAY | PROVIDERS: PCP Family Medicine; Visit Provider Nurse Practitioner Family | DX: N39.0 Urinary tract infection, site not specified (principal) | CPT/HCPCS: 81000; 81003; 87077; 87086; 87184 ==

== ENCOUNTER 2022-09-28 12:18 | Emergency (ER) | payer MEDICARE, MEDICAID, SELFPAY ==
--- NOTE | 2022-09-28 12:31 | W.ED.PSYCHS ---
HPI - Psych General: Chief Complaint: Psychiatric Symptoms Stated Complaint: PSYCH EVAL Time Seen by Provider: 09/28/22 12:22 Source: patient and EMS Mode of arrival: EMS History of Present Illness: 62-year-old male presents to the emergency room with complaints from the care home of behavioral issues. Evidently has been little confrontational some staff and residents. There is been no suicidal or homicidal expression no physical contact. Patient is calm and collected here he does not understand what happened at the care home while he was directed here but does not feel it is an issue that warranted an ER visit. Associated symptoms: Deny auditory hallucinations, visual hallucinations, depression, homicidal ideation or suicidal ideation Treatments prior to arrival: none Review of Systems Const: Denies: fever(s), chills, fatigue or malaise ENMT: Denies: throat pain, ear or mastoid pain, nasal discharge or nasal congestion Card: Denies: chest pain, edema, dyspnea on exertion or orthopnea Resp: Denies: dyspnea, productive cough or non-productive cough GI: Denies: abdominal pain, nausea or vomiting : Denies: dysuria, urinary frequency or urinary urgency Skin/Breast: Denies: rash or pruritus Psych: Denies: depression, visual hallucinations, auditory hallucinations, suicidal ideation or homicidal ideation PFSH ED PFSH: Medical History (Updated 09/28/22 @ 12:40 by Bryan Goss DO) Anxiety Constipation Erectile dysfunction Multiple sclerosis Multiple sclerosis Neurogenic bladder Surgical History History of eye surgery repair of muscle History of tonsillectomy Family History Other CAD (coronary artery disease) Social History Smoking and tobacco status: never smoked Alcohol intake: never Substance/Drug Use: never Marital status: Single Current occupational status: disabled Physical Exam Const: GENERAL APPEARANCE: cooperative and comfortable ORIENTATION/CONSCIOUSNESS: Yes awake HENMT: COMMON NORMALS: normocephalic, atraumatic and hearing grossly normal bilaterally HEAD & SCALP: normocephalic and atraumatic Resp: COMMON NORMALS: normal respiratory effort, No retractions, No use of accessory muscles and clear to auscultation bilaterally AUSCULTATION: clear to auscultation bilaterally Cardio: COMMON NORMALS: regular rate, regular rhythm and No murmurs present (Cardio) RATE: regular rate RHYTHM: regular rhythm GI: COMMON NORMALS: Soft to palpation and No hepatosplenomegaly present AUSCULTATION: Yes normoactive bowel sounds PALPATION: Yes Soft to palpation, No Tenderness to palpation present (GI), No Guarding due to palpation present (GI) and Yes No hepatosplenomegaly present Extremity: COMMON NORMALS: normal to inspection, capillary refill normal, no clubbing, cyanosis or edema, no calf tenderness and no pedal edema Skin: COMMON NORMALS: no rashes or lesions noted GENERAL SKIN EXAM: no rashes or lesions noted Course Vital Signs: Vital signs: Vital Signs Temperature 98.1 F 09/28/22 12:32 Pulse Rate 82 09/28/22 12:32 Respiratory Rate 16 09/28/22 12:32 Blood Pressure 146/72 09/28/22 12:32 Pulse Oximetry 100 09/28/22 12:32 Oxygen Delivery Me thod Room Air 09/28/22 12:32 [facility] - Psych Medical Decision Making Patient denies homicidal suicidal is not demonstrating any aggressive behavior. He admits to having confrontations with staff and other residents. At this point not believe there is any reason to make him an inpatient geriatric psychiatry unit. These behavioral issues would not be significantly improved with inpatient psychiatry treatment. Medical Records I reviewed the patient's medical records. Lab Data I reviewed the patient's lab results. Discharge Plan Discharge Patient Disposition: Home Clinical Impression: Behavior concern in adult Condition: Stable Prescriptions: No Action sildenafil [Viagra] 100 mg tablet 100 mg PO DAILY PRN (Reason: sexual activity) Qty: 20 12RF Rx Instructions: 1 hour before intercourse on empty stomach. NO NITROGLYCERIN! diazepam [Valium] 10 mg tablet 10 mg PO DAILY PRN (Reason: sedation) fluticasone propionate 50 mcg/actuation spray,suspension See Rx Instructions .ROUTE .COMPLEX Qty: 15.8 11RF Dose Instruction: USE 2 (TWO) SPRAYS DIRECTED TWO TIMES DAILY Rx Instructions: USE 2 (TWO) SPRAYS DIRECTED TWO TIMES DAILY baclofen 20 mg tablet 20 mg PO TID citalopram 20 mg tablet 20 mg PO DAILY tamsulosin 0.4 mg capsule 0.4 mg PO DAILY oxybutynin chloride 5 mg tablet 5 mg PO DAILY polyethylene glycol 3350 17 gram Powder In Packet 17 g PO BID Qty: 60 0RF pantoprazole 40 mg Tablet,Delayed Release (Dr/Ec) 40 mg PO BID Qty: 60 0RF folic acid 1 mg Tablet 1 mg PO BID Qty: 60 0RF Discharge Orders: Discharge ED (Routine); Ordered 09/28/22 Ordered By: Bryan Goss Referrals: Jay Espinoza DO [Primary Care Provider] - Discharge Diet: Usual diet Discharge Activity: Resume usual activity Patient Instructions: Opioid Safety, Pain Management Activity Restrictions/Additional Instructions: Follow-up with his primary care doctor through the care home. Coding Level of Care Code ED Information Technology Data Analyst for [facility] Cortez
[2022-09-28 12:32] VITALS: BP 146/72; PULSE 82; RESP 16; TEMP 36.7; O2SAT 100; BMI 27.6
--- NOTE | 2022-09-28 13:15 | PC.NURSE ---
Spoke with Shannan KELLER from [facility] about patient's discharge and follow-up instructions.
== END 2022-09-28 15:42 | disposition home or self-care (01) ==
PROVIDERS: Emergency Provider Family Medicine; PCP Family Medicine
DX: F91.9 Conduct disorder, unspecified (principal)
CPT/HCPCS: 99283

== ENCOUNTER → 2023-01-24 10:10 | Outpatient (BNVA) | payer MEDICARE, MEDICAID, SELFPAY | PROVIDERS: PCP Family Medicine; Visit Provider Nurse Practitioner Family | DX: L89.312 Pressure ulcer of right buttock, stage 2 (principal) ==

== ENCOUNTER → 2023-07-21 15:50 | Outpatient (BNVA) | payer MEDICARE, MEDICAID, SELFPAY | PROVIDERS: PCP Family Medicine; Visit Provider Nurse Practitioner Family | DX: R05.9 Cough, unspecified (principal) | CPT/HCPCS: 87420 ==